=== PATIENT | male | born 1930 | race Caucasian/White ===

== ENCOUNTER 2017-06-01 10:33 | Observation (INO) | payer OTHER ==
[~2017-06-01] VITALS: Ht 185.4 cm; Wt 114.3 kg
[~2017-06-01 10:33] MED LIST: ACET-1311 PO; ASCO1CAP3 PO; CHOL100010 PO; CLTP PO; FURO-85 PO; GABA-113 PO; LANS30CA12 PO; MCRK20 PO; METO25TA3 PO; PRAM0.129 PO; SIMV40TA2 PO; WARF5TAB7 PO
[2017-06-01] MEDS ORDERED: SODIUM CHLORIDE 0.9% 500ML 500 ML IV STA (10:49)
[2017-06-01] MEDS ORDERED: SODIUM CHLORIDE 0.9% 1000ML 1,000 ML IV STA (10:49)
[2017-06-01 10:59] LABS: BASO % 0.2 %; BASO ABS # 0.02 K/uL (0-0.2); COMPLETE YES; EOS % 2.2 %; HEMATOCRIT 39.6 % (42-52); IG% 0.2 %; LYMPH % 30.5 %; LYMPH ABS # 2.54 K/uL (1.2-3.4); MEAN CELL VOLUME 82.5 fL (80-100); MEAN CORPUSCULAR HEMOGLOBIN 29.4 pg (25-34); MEAN CORPUSCULAR HGB CONC 35.6 g/dl (32-36); MEAN PLATELET VOLUME 10.3 fL (7.4-10.4); MONO % 9.2 %; NEUT % 57.7 %; PLATELET COUNT 198 K/uL (130-400); WHITE BLOOD COUNT 8.34 K/uL (4.8-10.8)
[2017-06-01 11:02] LABS: ISTAT CREATININE 1.2 mg/dl (0.6-1.3); ISTAT HEMOGLOBIN 14.3 g/dl (14.0-18.0); ISTAT IONIZED CALCIUM 1.18 mmol/l (1.12-1.32)
[2017-06-01 11:08] LABS: INR 1.7 (0.9-1.1); PARTIAL THROMBOPLASTIN RATIO 1.2; PROTHROMBIN TIME (PATIENT) 18.6 SECONDS (9.0-12.0)
--- NOTE | 2017-06-01 11:11 | DIAGNOSTIC IMAGING REPORT ---
CHEST ONE VIEW PORTABLE CLINICAL HISTORY: Weakness, near syncope. COMPARISON STUDY: 04/22/2014 FINDINGS: The heart remains borderline enlarged. Interstitial/fibrotic changes are again evident the left lung base. There is no failure. There is no acute parenchymal consolidation. There are no pleural effusions.[ IMPRESSION: Chronic interstitial changes at the left lung base. No acute findings. Electronically signed by: Douglas Caruso M.D. 06/01/2017 11:09 AM Dictated Date/Time: 06/01/2017 11:09 AM
--- NOTE | 2017-06-01 11:12 | DIAGNOSTIC IMAGING REPORT ---
CT HEAD WITHOUT CONTRAST (CT) CLINICAL HISTORY: EVALUATE WEAKNESS COMPARISON STUDY: No previous studies for comparison. TECHNIQUE: Axial CT of the brain is performed from the vertex to the skull base. IV contrast was not administered for this examination. A dose lowering technique was utilized adhering to the principles of ALARA. CT DOSE: 1228.53 mGy.cm FINDINGS: No intra or extra-axial mass lesions are visualized. There is no CT evidence of acute cortical infarction. There is no evidence of midline shift. There is no acute hemorrhage. No calvarial fractures are visualized. There are patchy white matter hypodensities likely on a small vessel basis. There is no evidence of pathologic ventricular dilatation. There is no evidence of acute sinusitis IMPRESSION: No acute intracranial findings Electronically signed by: Douglas Caruso M.D. 06/01/2017 11:11 AM Dictated Date/Time: 06/01/2017 11:10 AM
[2017-06-01 11:18] LABS: ALT/SGPT 32 U/L (12-78); AST/SGOT 29 U/L (15-37); BLOOD UREA NITROGEN 19 mg/dl (7-18); BUN/CREATININE RATIO 14.6 (10-20); CARBON DIOXIDE 26 mmol/L (21-32); CHLORIDE 106 mmol/L (98-107); GLUCOSE 111 mg/dl (70-99); MAGNESIUM 2.3 mg/dl (1.8-2.4); POTASSIUM 4.1 mmol/L (3.5-5.1); SODIUM 138 mmol/L (136-145)
[2017-06-01 11:26] LABS: ALKALINE PHOSPHATASE 63 U/L (45-117); CKMB/CK RATIO 0.9 (0-3.0)
[2017-06-01] MEDS ORDERED: CALC-354 PO (11:43)
[2017-06-01] MEDS ORDERED: RANI150T3 PO (11:43)
[2017-06-01] MEDS ORDERED: HYDR-5688 PO (11:43)
[2017-06-01] MEDS ORDERED: POTA20TA16 PO (11:43)
[2017-06-01 11:50] VITALS: O2SAT 97; Ht 185.4 cm; Wt 114.3 kg
[2017-06-01] MEDS ORDERED: SODIUM CHLORIDE 0.9% 1000ML 1,000 ML IV SCH (12:48)
[2017-06-01] MEDS ORDERED: OMEP40CA41 PO (12:58)
[2017-06-01] MEDS ORDERED: CMD5 PO (12:59)
[2017-06-01] MEDS ORDERED: ALPR-412 PO (12:59)
[2017-06-01] MEDS ORDERED: ONDANSETRON INJ 2 MG/ML 2 ML VIAL IV PRN (13:00)
[2017-06-01] MEDS ORDERED: ALPRAZOLAM 0.25 MG TAB PO PRN (13:00)
[2017-06-01] MEDS ORDERED: ACETAMINOPHEN 325 MG TAB PO PRN (13:00)
--- NOTE | 2017-06-01 13:13 | History and Physical ---
History & Physical Date & Time of Service: Jun 01, 2017 at 13:01 Chief Complaint: Near Passed Out-Code Purple Primary Care Physician: Chemo Zapata M.D. History of Present Illness Source: patient, family, clinic records, hospital records 87 yo M presents to the ER as a code purple while visiting a relative who was here having surgery. He states that he felt his stomach rumble as if he were going to have diarrhea, so he went to the public bathroom and felt like he was going to pass out. He had some diarrhea at that time without evidence of blood but felt he couldn't stand up on his own, so opened the door. His family found him after a few minutes and code purple was initiated. In the ER he has sinus gerda and is hemodynamically stable and afebrile. Workup is essentially negative but the patient still doesn't feel 100% so he will be brought in for observation. Per patient and his ROS reveals a R frontal headache that has been intermittent this week, and he states that his L ear has been bothering him. He did have two normal consistency bowel movements this morning at home prior to arriving. He reports some chronic positional lightheadedness and denies any LOC in the past. He denies any chest pain, abdominal pain, cold symptoms, sore throat, cough, nasal congestion, fevers, chills, shortness of breath, nausea, vomiting, recent diarrhea or blood per rectum or any issues with ambulation different from his baseline. He does say that his stomach has been bothering him for the last few weeks though. 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 Social History Smoking Status: Never Smoker Smokeless Tobacco Use: No Alcohol Use: none Drug Use: none Marital Status: Housing status: lives with significant other Occupational Status: retired Immunizations History of Influenza Vaccine: Yes Influenza Vaccine Date: Jun 09, 2016 History of Tetanus Vaccine?: Yes Tetanus Immunization Date: Apr 10, 2013 History of Pneumococcal: Yes Pneumococcal Date: Jul 13, 2015 History of Hepatitis B Vaccine: No Multi-Drug Resistant Organisms History of MDRO: No Allergies Coded Allergies: Paroxetine (Verified Adverse Reaction, Unknown, JERKING, 06/01/17) Home Medications Scheduled Ascorbic Acid (Vitamin C), 500 MG PO DAILY Calcium Carbonate-Cholecalcife (Caltrate 600+D), 1 TAB PO DAILY Cholecalciferol (Vitamin D), 1,000 MG PO DAILY Gabapentin (Neurontin), 300 MG PO BID Metoprolol Succ (Toprol Xl) (Toprol-Xl), 12.5 MG PO DAILY Omeprazole (Prilosec), 40 MG PO DAILY Pramipexole (Mirapex), 0.125 MG PO HS Ranitidine Hcl (Zantac), 150 MG PO HS Simvastatin (Zocor), 20 MG PO QPM Warfarin Sod (Coumadin), 5 MG PO DAILY Scheduled PRN Acetaminophen (Tylenol), 650 MG PO DIRECTED PRN for Pain Alprazolam (Alprazolam), 1 TAB PO HS PRN for insomnia/anxiety Review of Systems At least ten systems were reviewed and negative except as indicated in HPI. Physical Exam Vital Signs Date Time Temp Pulse Resp B/P (MAP) Pulse Ox O2 Delivery O2 Flow Rate FiO2 06/01/17 12:08 54 18 129/78 98 Nasal Cannula 2.0 06/01/17 11:50 97 Nasal Cannula 2.0 06/01/17 11:31 56 139/86 97 Nasal Cannula 2.0 06/01/17 11:15 58 18 130/80 94 Nasal Cannula 2.0 06/01/17 10:45 36.5 58 16 120/70 95 Room Air 06/01/17 10:45 95 Room Air General Appearance: WD/WN, no apparent distress Head: normocephalic, atraumatic Eyes: normal inspection, PERRL, EOMI, sclerae normal ENT: normal ENT inspection, hearing grossly normal, TMs normal, pharynx normal Neck: supple, no adenopathy, no JVD, trachea midline Respiratory/Chest: lungs clear, normal breath sounds, no respiratory distress, no accessory muscle use Cardiovascular: regular rate, rhythm, no edema, no gallop, no JVD, no murmur, normal peripheral pulses Abdomen/GI: normal bowel sounds, non tender, soft, + fecal occult blood (per ER physician) Back: normal inspection Extremities/Musculoskelatal: normal inspection Neurologic/Psych: rheumatology specialist II-XII nml as tested, no motor/sensory deficits, alert, normal mood/affect, oriented x 3 Skin: normal color Diagnostics Laboratory Results 06/01/17 10:45 Red Blood Count 4.80, Mean Corpuscular Volume 82.5, Mean Corpuscular Hemoglobin 29.4, Mean Corpuscular Hemoglobin Concent 35.6, Mean Platelet Volume 10.3, Neutrophils (%) (Auto) 57.7, Lymphocytes (%) (Auto) 30.5, Monocytes (%) (Auto) 9.2, Eosinophils (%) (Auto) 2.2, Basophils (%) (Auto) 0.2, Neutrophils # (Auto) 4.81, Lymphocytes # (Auto) 2.54, Monocytes # (Auto) 0.77, Eosinophils # (Auto) 0.18, Basophils # (Auto) 0.02 06/01/17 10:45 Test 06/01/17 10:45 06/01/17 10:49 06/01/17 16:00 White Blood Count 8.34 K/uL (4.8-10.8) Red Blood Count 4.80 M/uL (4.7-6.1) Hemoglobin 14.1 g/dL (14.0-18.0) Hematocrit 39.6 % (42-52) Mean Corpuscular Volume 82.5 fL (80-100) Mean Corpuscular Hemoglobin 29.4 pg (25-34) Mean Corpuscular Hemoglobin Concent 35.6 g/dl (32-36) Platelet Count 198 K/uL (130-400) Mean Platelet Volume 10.3 fL (7.4-10.4) Neutrophils (%) (Auto) 57.7 % Lymphocytes (%) (Auto) 30.5 % Monocytes (%) (Auto) 9.2 % Eosinophils (%) (Auto) 2.2 % Basophils (%) (Auto) 0.2 % Neutrophils # (Auto) 4.81 K/uL (1.4-6.5) Lymphocytes # (Auto) 2.54 K/uL (1.2-3.4) Monocytes # (Auto) 0.77 K/uL (0.11-0.59) Eosinophils # (Auto) 0.18 K/uL (0-0.5) Basophils # (Auto) 0.02 K/uL (0-0.2) RDW Standard Deviation 43.1 fL (36.4-46.3) RDW Coefficient of Variation 14.3 % (11.5-14.5) Immature Granulocyte % (Auto) 0.2 % Immature Granulocyte # (Auto) 0.02 K/uL (0.00-0.02) Prothrombin Time 18.6 SECONDS (9.0-12.0) Prothromb Time International Ratio 1.7 (0.9-1.1) Activated Partial Thromboplast Time 32.0 SECONDS (21.0-31.0) Partial Thromboplastin Ratio 1.2 Est Creatinine Clear Calc Drug Dose 55.7 ml/min Estimated GFR () 57.7 Estimated GFR (Non- 49.8 BUN/Creatinine Ratio 14.6 (10-20) Calcium Level 9.0 mg/dl (8.5-10.1) Magnesium Level 2.3 mg/dl (1.8-2.4) Total Bilirubin 0.6 mg/dl (0.2-1) Direct Bilirubin 0.2 mg/dl (0-0.2) Aspartate Amino Transf (AST/SGOT) 29 U/L (15-37) Alanine Aminotransferase (ALT/SGPT) 32 U/L (12-78) Alkaline Phosphatase 63 U/L (45-117) Total Creatine Kinase 170 U/L (39-308) Creatine Kinase MB 1.6 ng/ml (0.5-3.6) Creatine Kinase MB Ratio 0.9 (0-3.0) Troponin I < 0.015 ng/ml (0-0.045) Total Protein 7.4 gm/dl (6.4-8.2) Albumin 3.9 gm/dl (3.4-5.0) Lipase 104 U/L (73-393) Thyroid Stimulating Hormone (TSH) 2.290 uIu/ml (0.300-4.500) Bedside Hemoglobin 14.3 g/dl (14.0-18.0) Bedside Hematocrit 42 % (42-52) Bedside Sodium 139 mEq/L (135-144) Bedside Potassium 4.0 mEq/L (3.3-5.0) Bedside Chloride 103 mEq/L (101-112) Bedside Total CO2 24 mEq/l (24-31) Anion Gap 17.0 mmol/L (16-25) Bedside Blood Urea Nitrogen 20 mg/dl (7-18) Bedside Creatinine 1.2 mg/dl (0.6-1.3) Bedside Glucose (other) 113 mg/dl (70-99) Bedside Ionized Calcium (Francis) 1.18 mmol/l (1.12-1.32) Urine Color YELLOW Urine Appearance CLEAR (CLEAR) Urine pH 7.0 (4.5-7.5) Urine Specific [place] 1.010 (1.000-1.030) Urine Protein NEG (NEG) Urine Glucose (UA) NEG (NEG) Urine Ketones NEG (NEG) Urine Occult Blood NEG (NEG) Urine Nitrite NEG (NEG) Urine Bilirubin NEG (NEG) Urine Urobilinogen NEG (NEG) Urine Leukocyte Esterase TRACE (NEG) Urine WBC (Auto) 1-5 /hpf (0-5) Urine RBC (Auto) 0-4 /hpf (0-4) Urine Hyaline Casts (Auto) 1-5 /lpf (0-5) Urine Epithelial Cells (Auto) 5-10 /lpf (0-5) Urine Bacteria (Auto) NEG (NEG) Date/Time Source Procedure Growth Status 06/01/17 16:00 Stool WBC Smear Pending Received 06/01/17 16:00 Stool Shiga Toxin Test Pending Received 06/01/17 16:00 Stool Stool Culture Pending Received 06/01/17 14:05 Urine , Clean Catch Urine Culture Pending Received Results Past 24 Hours Test 06/01/17 10:45 06/01/17 10:49 Range/Units White Blood Count 8.34 4.8-10.8 K/uL Red Blood Count 4.80 4.7-6.1 M/uL Hemoglobin 14.1 14.0-18.0 g/dL Hematocrit 39.6 42-52 % Mean Corpuscular Volume 82.5 80-100 fL Mean Corpuscular Hemoglobin 29.4 25-34 pg Mean Corpuscular Hemoglobin Concent 35.6 32-36 g/dl Platelet Count 198 130-400 K/uL Mean Platelet Volume 10.3 7.4-10.4 fL Neutrophils (%) (Auto) 57.7 % Lymphocytes (%) (Auto) 30.5 % Monocytes (%) (Auto) 9.2 % Eosinophils (%) (Auto) 2.2 % Basophils (%) (Auto) 0.2 % Neutrophils # (Auto) 4.81 1.4-6.5 K/uL Lymphocytes # (Auto) 2.54 1.2-3.4 K/uL Monocytes # (Auto) 0.77 0.11-0.59 K/uL Eosinophils # (Auto) 0.18 0-0.5 K/uL Basophils # (Auto) 0.02 0-0.2 K/uL RDW Standard Deviation 43.1 36.4-46.3 fL RDW Coefficient of Variation 14.3 11.5-14.5 % Immature Granulocyte % (Auto) 0.2 % Immature Granulocyte # (Auto) 0.02 0.00-0.02 K/uL Prothrombin Time 18.6 9.0-12.0 SECONDS Prothromb Time International Ratio 1.7 0.9-1.1 Activated Partial Thromboplast Time 32.0 21.0-31.0 SECONDS Partial Thromboplastin Ratio 1.2 Sodium Level 138 136-145 mmol/L Potassium Level 4.1 3.5-5.1 mmol/L Chloride Level 106 98-107 mmol/L Carbon Dioxide Level 26 21-32 mmol/L Anion Gap 6.0 17.0 16-25 mmol/L Blood Urea Nitrogen 19 7-18 mg/dl Creatinine 1.30 0.60-1.40 mg/dl Est Creatinine Clear Calc Drug Dose 55.7 ml/min Estimated GFR () 57.7 Estimated GFR (Non- 49.8 BUN/Creatinine Ratio 14.6 10-20 Random Glucose 111 70-99 mg/dl Calcium Level 9.0 8.5-10.1 mg/dl Magnesium Level 2.3 1.8-2.4 mg/dl Total Bilirubin 0.6 0.2-1 mg/dl Direct Bilirubin 0.2 0-0.2 mg/dl Aspartate Amino Transf (AST/SGOT) 29 15-37 U/L Alanine Aminotransferase (ALT/SGPT) 32 12-78 U/L Alkaline Phosphatase 63 45-117 U/L Total Creatine Kinase 170 39-308 U/L Creatine Kinase MB 1.6 0.5-3.6 ng/ml Creatine Kinase MB Ratio 0.9 0-3.0 Troponin I < 0.015 0-0.045 ng/ml Total Protein 7.4 6.4-8.2 gm/dl Albumin 3.9 3.4-5.0 gm/dl Lipase 104 73-393 U/L Thyroid Stimulating Hormone (TSH) 2.290 0.300-4.500 uIu/ml Bedside Hemoglobin 14.3 14.0-18.0 g/dl Bedside Hematocrit 42 42-52 % Bedside Sodium 139 135-144 mEq/L Bedside Potassium 4.0 3.3-5.0 mEq/L Bedside Chloride 103 101-112 mEq/L Bedside Total CO2 24 24-31 mEq/l Bedside Blood Urea Nitrogen 20 7-18 mg/dl Bedside Creatinine 1.2 0.6-1.3 mg/dl Bedside Glucose (other) 113 70-99 mg/dl Bedside Ionized Calcium (Francis) 1.18 1.12-1.32 mmol/l Diagnostic Radiology CHEST ONE VIEW PORTABLE CLINICAL HISTORY: Weakness, near syncope. COMPARISON STUDY: 04/22/2014 FINDINGS: The heart remains borderline enlarged. Interstitial/fibrotic changes are again evident the left lung base. There is no failure. There is no acute parenchymal consolidation. There are no pleural effusions.[ IMPRESSION: Chronic interstitial changes at the left lung base. No acute findings. CT HEAD WITHOUT CONTRAST (CT) CLINICAL HISTORY: EVALUATE WEAKNESS COMPARISON STUDY: No previous studies for comparison. TECHNIQUE: Axial CT of the brain is performed from the vertex to the skull base. IV contrast was not administered for this examination. A dose lowering technique was utilized adhering to the principles of ALARA. CT DOSE: 1228.53 mGy.cm FINDINGS: No intra or extra-axial mass lesions are visualized. There is no CT evidence of acute cortical infarction. There is no evidence of midline shift. There is no acute hemorrhage. No calvarial fractures are visualized. There are patchy white matter hypodensities likely on a small vessel basis. There is no evidence of pathologic ventricular dilatation. There is no evidence of acute sinusitis IMPRESSION: No acute intracranial findings EKG SB58, 1 AVB Impression Assessment and Plan 87 yo M with presyncope 1. Presyncope likely 2/2 acute GI illness in setting of upset stomach and diarrhea. Supportive care with IVF and antiemetics as needed. Stool studies. Imodium if severe. Monitor overnight for improvement. Had mild FOBT postitive in ER-would attribute to irritation from diarrhea and upset stomach. No blood per rectum has been noted by the patient. Outpatient workup/follow-up as needed. 2. Peripheral neuropathy-controlled with gabapentin 3. PAF-cont rate control with metoprolol, cont coumadin. Daily INR. DVT prophy-coumadin Full Code per my discussion with he and his on admission Dispo-to tele Mireille Carney DO [facility] Hospitalist Level of Care Med/Surg Advanced Directives Existing Living Will: No Existing Power of It Senior Analyst: No Resuscitation Status FULL RESUSCITATION VTE Prophylaxis VTE Risk Assessment Done? Y/N: Yes Risk Level: Moderate Given or contraindicated: Warfarin (Coumadin)
[2017-06-01] MEDS ORDERED: IV FLUIDS COMPLETED PRN (14:15)
--- NOTE | 2017-06-01 14:30 | EMERGENCY ROOM VISIT NOTE ---
History Report prepared by Sindhu: Andres James Under the Supervision of: Dr. Obi Rivera M.D. First contact with patient: 10:44 Chief Complaint: SYNCOPE (NEAR SYNCOPE) Stated Complaint: NEAR PASSED OUT-CODE PURPLE History of Present Illness The patient is a 87 year old male who presents to the Emergency Room with complaints of a near syncopal episode occurring 10 minutes ago. He states that he was visiting someone in the hospital and went to go to the bathroom when his episode occurred. He notes that his episode occurring while sitting on the toilet. The patient states that he experienced diarrhea just prior to this. He states that he had one episode of diarrhea occur earlier today as well. He was unable to see if his stool was black or bloody. The patient states that he felt too weak to get off the toilet during the episode. He states that he did not actually lose consciousness. He currently complains of lightheadedness, generalized weakness, and a throbbing pain in the left side of his head. Per , the patient has been complaining of intermittent left forehead pain this past week, but otherwise he has had no apparent changes to his health. He is on Coumadin. Pt denies fevers, chills, visual changes, neck pain/stiffness, thunder clap or sudden onset of headache, carbon monoxide exposure, ear problems /hearing loss, sinus congestion/recent infection, chest pain, breathing difficulties, vomiting, abdominal pain, urinary symptoms, numbness, weakness, lymphadenopathy, rash, or other complaints Source of History: patient Onset: 10 minutes ago Quality: other (near-syncope) Timing: other (episode) Associated Symptoms: + diarrhea, + weakness (generalized) Note: Additional symptoms: lightheadedness, and a throbbing pain in the left side of his head. Review of Systems See HPI for pertinent positives and negatives. A total of ten systems were reviewed and were otherwise negative. 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 Social History Smoking Status: Never Smoker Marital Status: Occupation Status: retired Current/Historical Medications Scheduled Ascorbic Acid (Vitamin C), 500 MG PO DAILY Calcium Carbonate-Cholecalcife (Caltrate 600+D), 1 TAB PO DAILY Cholecalciferol (Vitamin D), 1,000 MG PO DAILY Gabapentin (Neurontin), 300 MG PO BID Metoprolol Succ (Toprol Xl) (Toprol-Xl), 12.5 MG PO DAILY Omeprazole (Prilosec), 40 MG PO DAILY Pramipexole (Mirapex), 0.125 MG PO HS Ranitidine Hcl (Zantac), 150 MG PO HS Simvastatin (Zocor), 20 MG PO QPM Warfarin Sod (Coumadin), 5 MG PO DAILY Scheduled PRN Acetaminophen (Tylenol), 650 MG PO DIRECTED PRN for Pain Alprazolam (Alprazolam), 1 TAB PO HS PRN for insomnia/anxiety Allergies Coded Allergies: Paroxetine (Verified Adverse Reaction, Unknown, JERKING, 06/01/17) Physical Exam Vital Signs Date Time Temp Pulse Resp B/P (MAP) Pulse Ox O2 Delivery O2 Flow Rate FiO2 06/01/17 12:08 54 18 129/78 98 Nasal Cannula 2.0 06/01/17 11:50 97 Nasal Cannula 2.0 06/01/17 11:31 56 139/86 97 Nasal Cannula 2.0 06/01/17 11:15 58 18 130/80 94 Nasal Cannula 2.0 06/01/17 10:45 36.5 58 16 120/70 95 Room Air 06/01/17 10:45 95 Room Air Physical Exam GENERAL: Awake, alert, uncomfortable-appearing, no distress. Mildly diaphoretic. HENT: Normocephalic, atraumatic. TM's normal. Oropharynx unremarkable. EYES: PERRL. EOMI. Normal conjunctiva. Sclera non-icteric. NECK: Supple. No nuchal rigidity. FROM. No JVD or bruit. RESPIRATORY: CTA CARDIAC: RRR. No murmur. ABDOMEN: Soft, non distended. No tenderness to palpation. No rebound or guarding. No masses. Hyperactive bowel sounds noted. RECTAL: Deferred. MUSCULOSKELETAL: Unremarkable. No edema. Gross motor strength symmetric. Chronic lower extremity veinous discoloration. NEURO: Cranial nerves 2-12 grossly intact. Normal sensorium. No sensory or motor deficits noted. Speech normal. No pronator drift. SKIN: No rash or jaundice noted. Skin graft noted to the lower extremities and back. LYMPH: No adenopathy. Medical Decision & Procedures ER Provider Diagnostic Interpretation: Radiology results as stated below per my review and radiologist interpretation: CT HEAD WITHOUT CONTRAST (CT) FINDINGS: No intra or extra-axial mass lesions are visualized. There is no CT evidence of acute cortical infarction. There is no evidence of midline shift. There is no acute hemorrhage. No calvarial fractures are visualized. There are patchy white matter hypodensities likely on a small vessel basis. There is no evidence of pathologic ventricular dilatation. There is no evidence of acute sinusitis IMPRESSION: No acute intracranial findings Electronically signed by: Douglas Caruso M.D. 06/01/2017 11:11 AM CHEST ONE VIEW PORTABLE FINDINGS: The heart remains borderline enlarged. Interstitial/fibrotic changes are again evident the left lung base. There is no failure. There is no acute parenchymal consolidation. There are no pleural effusions.[ IMPRESSION: Chronic interstitial changes at the left lung base. No acute findings. Electronically signed by: Douglas Caruso M.D. 06/01/2017 11:09 AM Laboratory Results 06/01/17 10:45 Red Blood Count 4.80, Mean Corpuscular Volume 82.5, Mean Corpuscular Hemoglobin 29.4, Mean Corpuscular Hemoglobin Concent 35.6, Mean Platelet Volume 10.3, Neutrophils (%) (Auto) 57.7, Lymphocytes (%) (Auto) 30.5, Monocytes (%) (Auto) 9.2, Eosinophils (%) (Auto) 2.2, Basophils (%) (Auto) 0.2, Neutrophils # (Auto) 4.81, Lymphocytes # (Auto) 2.54, Monocytes # (Auto) 0.77, Eosinophils # (Auto) 0.18, Basophils # (Auto) 0.02 06/01/17 10:45 Test 06/01/17 10:45 06/01/17 10:49 White Blood Count 8.34 K/uL (4.8-10.8) Red Blood Count 4.80 M/uL (4.7-6.1) Hemoglobin 14.1 g/dL (14.0-18.0) Hematocrit 39.6 % (42-52) Mean Corpuscular Volume 82.5 fL (80-100) Mean Corpuscular Hemoglobin 29.4 pg (25-34) Mean Corpuscular Hemoglobin Concent 35.6 g/dl (32-36) Platelet Count 198 K/uL (130-400) Mean Platelet Volume 10.3 fL (7.4-10.4) Neutrophils (%) (Auto) 57.7 % Lymphocytes (%) (Auto) 30.5 % Monocytes (%) (Auto) 9.2 % Eosinophils (%) (Auto) 2.2 % Basophils (%) (Auto) 0.2 % Neutrophils # (Auto) 4.81 K/uL (1.4-6.5) Lymphocytes # (Auto) 2.54 K/uL (1.2-3.4) Monocytes # (Auto) 0.77 K/uL (0.11-0.59) Eosinophils # (Auto) 0.18 K/uL (0-0.5) Basophils # (Auto) 0.02 K/uL (0-0.2) RDW Standard Deviation 43.1 fL (36.4-46.3) RDW Coefficient of Variation 14.3 % (11.5-14.5) Immature Granulocyte % (Auto) 0.2 % Immature Granulocyte # (Auto) 0.02 K/uL (0.00-0.02) Prothrombin Time 18.6 SECONDS (9.0-12.0) Prothromb Time International Ratio 1.7 (0.9-1.1) Activated Partial Thromboplast Time 32.0 SECONDS (21.0-31.0) Partial Thromboplastin Ratio 1.2 Est Creatinine Clear Calc Drug Dose 55.7 ml/min Estimated GFR () 57.7 Estimated GFR (Non- 49.8 BUN/Creatinine Ratio 14.6 (10-20) Calcium Level 9.0 mg/dl (8.5-10.1) Magnesium Level 2.3 mg/dl (1.8-2.4) Total Bilirubin 0.6 mg/dl (0.2-1) Direct Bilirubin 0.2 mg/dl (0-0.2) Aspartate Amino Transf (AST/SGOT) 29 U/L (15-37) Alanine Aminotransferase (ALT/SGPT) 32 U/L (12-78) Alkaline Phosphatase 63 U/L (45-117) Total Creatine Kinase 170 U/L (39-308) Creatine Kinase MB 1.6 ng/ml (0.5-3.6) Creatine Kinase MB Ratio 0.9 (0-3.0) Troponin I < 0.015 ng/ml (0-0.045) Total Protein 7.4 gm/dl (6.4-8.2) Albumin 3.9 gm/dl (3.4-5.0) Lipase 104 U/L (73-393) Thyroid Stimulating Hormone (TSH) 2.290 uIu/ml (0.300-4.500) Bedside Hemoglobin 14.3 g/dl (14.0-18.0) Bedside Hematocrit 42 % (42-52) Bedside Sodium 139 mEq/L (135-144) Bedside Potassium 4.0 mEq/L (3.3-5.0) Bedside Chloride 103 mEq/L (101-112) Bedside Total CO2 24 mEq/l (24-31) Anion Gap 17.0 mmol/L (16-25) Bedside Blood Urea Nitrogen 20 mg/dl (7-18) Bedside Creatinine 1.2 mg/dl (0.6-1.3) Bedside Glucose (other) 113 mg/dl (70-99) Bedside Ionized Calcium (Francis) 1.18 mmol/l (1.12-1.32) Laboratory results reviewed by me Medications Administered Medications (Trade) Dose Ordered Sig/Jean Marie Route Start Time Stop Time Status Last Admin Dose Admin Sodium Chloride 1,000 ml @ 125 mls/hr Q8H STAT IV 06/01/17 10:49 06/01/17 14:16 DC 06/01/17 11:25 125 MLS/HR Sodium Chloride 500 ml @ 999 mls/hr Q31M STAT IV 06/01/17 10:49 06/01/17 11:19 DC 06/01/17 10:50 999 MLS/HR ECG Indication: syncope (near) Rate (beats per minute): 58 Rhythm: sinus bradycardia Findings: 1st degree AV block, PAC, no acute ischemic change ED Course 1038: The patient was evaluated in room A1. A complete history and physical exam was performed. 1049: Ordered Sodium Chloride 1000 ml @ 125 mls/hr IV, Sodium Chloride 500 ml @ 999 mls/hr IV. 1201: Upon reexamination, the patient was resting comfortably. I discussed the test results and treatment plan with him. The patient will be evaluated for further management. Medical Decision Triage Nursing notes reviewed. The patient's presentation and history were concerning for near syncope and diarrhea. Etiologies such as vasovagal event, GI bleed, infection, hypoglycemia, electrolyte abnormalities, cardiac sources, intracerebral event, toxicologic, neurologic, as well as others were entertained. The patient was evaluated. He was quickly mobilized to the Emergency Room after a code purple was called for his distress. He had a nonfocal neurologic examination. He was generally weak. The patient was hydrated. Oxygen was applied. The patient's CAT scan was unremarkable. Chest x-ray was unremarkable. His CBC, chemistry panel, LFTs and lipase unremarkable. The patient had trace heme positive stools on rectal examination but there was no gross blood. No melena. On reassessment he was feeling somewhat better. Given his age and the severity of symptoms further evaluation and management was felt to be appropriate in the hospital. Consultation was made with internal medicine. The patient was evaluated in the Emergency Room for further management. Medication Reconcilliation Current Medication List: was personally reviewed by me Blood Pressure Screening Patient's blood pressure: Normal blood pressure Blood pressure disposition: Did not require urgent referral Consults Time Called: 1153 Consulting Physician: Dr. Carney -[facility] [place] Returned Call: 1200 Discussed the patient's case. The patient will be evaluated for further treatment and disposition. Impression Primary Impression: Near syncope Scribe Attestation The scribe's documentation has been prepared under my direction and personally reviewed by me in its entirety. I confirm that the note above accurately reflects all work, treatment, procedures, and medical decision making performed by me. Departure Information Dispostion Being Evaluated By Hospitalist Chemo Greer M.D. (PCP) Patient Instructions My [facility]
[2017-06-01 14:31] VITALS: BP 168/101; PULSE 86; TEMP 36.6; O2SAT 97
[2017-06-01 16:15] LABS: URINE APPEARANCE CLEAR (CLEAR); URINE BILIRUBIN NEG (NEG); URINE COLOR YELLOW; URINE NITRITE NEG (NEG); UROBILINOGEN NEG (NEG)
[2017-06-01 17:00] LABS: MANUAL MICROSCOPIC REQUIRED? NO; REVIEW REQ? NO
[2017-06-01 19:35] VITALS: BP 154/82; PULSE 58; TEMP 36.6; O2SAT 97
[2017-06-01] MEDS ORDERED: SIMVASTATIN 20 MG TAB PO SCH (21:00)
[2017-06-01] MEDS ORDERED: PRAMIPEXOLE DIHYDROCHLORIDE 0.25MG TAB PO SCH (21:00)
[2017-06-01] MEDS ORDERED: CALCIUM 600MG + VIT D 400 IU TAB PO SCH (21:00)
[2017-06-01] MEDS: GABAPENTIN 300 MG CAP PO SCH (21:00)
[2017-06-01] MEDS ORDERED: RANITIDINE HCL 150 MG TAB PO SCH (21:00)
[2017-06-02 00:27] VITALS: BP 147/80; PULSE 63; TEMP 36.7; O2SAT 94
[2017-06-02] MEDS ORDERED: DIPHENOXYLATE/ATROPINE 2.5/0.025MG TAB PO PRN (00:45)
[2017-06-02 07:34] LABS: MEAN CELL VOLUME 81.9 fL (80-100); MEAN CORPUSCULAR HEMOGLOBIN 28.3 pg (25-34); MEAN CORPUSCULAR HGB CONC 34.6 g/dl (32-36); MEAN PLATELET VOLUME 10.3 fL (7.4-10.4); PLATELET COUNT 176 K/uL (130-400); RED BLOOD COUNT 4.52 M/uL (4.7-6.1)
[2017-06-02 07:37] VITALS: BP 131/72; PULSE 62; TEMP 36.8; O2SAT 95
[2017-06-02] MEDS: GABAPENTIN 300 MG CAP PO SCH (07:47)
[2017-06-02 08:00] VITALS: O2SAT 95
[2017-06-02 08:02] LABS: BUN/CREATININE RATIO 14.4 (10-20); CALCIUM 8.3 mg/dl (8.5-10.1); POTASSIUM 3.8 mmol/L (3.5-5.1)
[2017-06-02] MEDS ORDERED: NURSING VERBAL MED ORDER ONE (08:30)
[2017-06-02] MEDS ORDERED: CALCIUM 600MG + VIT D 400 IU TAB PO SCH (09:00)
[2017-06-02] MEDS ORDERED: ASCORBIC ACID 500 MG TAB PO SCH ×2 (09:00→17:00)
[2017-06-02] MEDS ORDERED: METOPROLOL SUCC 25MG EXT REL TAB PO SCH ×2 (09:00→17:00)
[2017-06-02] MEDS ORDERED: PANTOprazole SOD 40 MG TAB PO SCH (09:00)
[2017-06-02] MEDS ORDERED: CHOLECALCIFEROL 1000 INTER.UNIT TAB PO SCH ×2 (09:00→17:00)
[2017-06-02 11:11] VITALS: BP 134/76; PULSE 60; TEMP 36.6; O2SAT 95
[2017-06-02 12:00] VITALS: O2SAT 95
--- NOTE | 2017-06-02 14:51 | Progress Note ---
Internal Med Progress Note Date of Service: Jun 02, 2017. Provider Documentation: SUBJECTIVE: The patient was seem and examined Has not been feeling well for the last few days Diarrhea on the day of admission Presyncope during/following bowel movement OBJECTIVE: Vital Signs-as noted below Exam: General-No distress at rest Eyes-normal ENT-Normal Neck-supple Lungs-clear to ausucltate bilaterally Heart-Regular,no murmur Abdomen-Benign,no masses,bowel sound present Extremities-No edema Neuro-AAOx3 NO focal neuro deficit Lab data as noted below. ASSESSMENT & PLAN: 87 yo M with presyncope Presyncope Likely Vasovagal Secondary to acute GI illness in setting of upset stomach and diarrhea. Supportive Care IV fluid Stool for C Diff-negative ,C/S pending Diarrheal is controlled with Imodium PAF-cont rate control with metoprolol, cont Coumadin. Has Extreme 1 deg Heart Block No arrhythmia noted overnight No symptoms noted Peripheral neuropathy-controlled with gabapentin Likely to complicate the situation DVT prophy-Coumadin Full Code per my discussion with he and his on admission Feeling a lot better Has had PT Wants to be discharged Discussed with the Family members Discharge today Vital Signs: Date Time Temp Pulse Resp B/P (MAP) Pulse Ox O2 Delivery O2 Flow Rate FiO2 06/02/17 15:33 36.6 60 18 95 Room Air 06/02/17 12:00 95 Room Air 06/02/17 11:11 36.6 60 18 134/76 (95) 95 Room Air 06/02/17 08:00 95 Room Air 06/02/17 07:37 36.8 62 18 131/72 (91) 95 Room Air 06/02/17 04:00 Room Air 06/02/17 00:27 36.7 63 19 147/80 (102) 94 Room Air 06/02/17 00:00 Room Air 06/01/17 20:30 Room Air 06/01/17 19:35 36.6 58 18 154/82 (106) 97 Nasal Cannula 06/01/17 16:00 Room Air Lab Results: Results Past 24 Hours Test 06/01/17 16:00 06/02/17 07:09 Range/Units Urine Color YELLOW Urine Appearance CLEAR CLEAR Urine pH 7.0 4.5-7.5 Urine Specific [place] 1.010 1.000-1.030 Urine Protein NEG NEG Urine Glucose (UA) NEG NEG Urine Ketones NEG NEG Urine Occult Blood NEG NEG Urine Nitrite NEG NEG Urine Bilirubin NEG NEG Urine Urobilinogen NEG NEG Urine Leukocyte Esterase TRACE NEG Urine WBC (Auto) 1-5 0-5 /hpf Urine RBC (Auto) 0-4 0-4 /hpf Urine Hyaline Casts (Auto) 1-5 0-5 /lpf Urine Epithelial Cells (Auto) 5-10 0-5 /lpf Urine Bacteria (Auto) NEG NEG White Blood Count 4.90 4.8-10.8 K/uL Red Blood Count 4.52 4.7-6.1 M/uL Hemoglobin 12.8 14.0-18.0 g/dL Hematocrit 37.0 42-52 % Mean Corpuscular Volume 81.9 80-100 fL Mean Corpuscular Hemoglobin 28.3 25-34 pg Mean Corpuscular Hemoglobin Concent 34.6 32-36 g/dl RDW Standard Deviation 43.1 36.4-46.3 fL RDW Coefficient of Variation 14.3 11.5-14.5 % Platelet Count 176 130-400 K/uL Mean Platelet Volume 10.3 7.4-10.4 fL Sodium Level 140 136-145 mmol/L Potassium Level 3.8 3.5-5.1 mmol/L Chloride Level 107 98-107 mmol/L Carbon Dioxide Level 24 21-32 mmol/L Anion Gap 9.0 3-11 mmol/L Blood Urea Nitrogen 14 7-18 mg/dl Creatinine 1.00 0.60-1.40 mg/dl Est Creatinine Clear Calc Drug Dose 71.5 ml/min Estimated GFR () 79.2 Estimated GFR (Non- 68.3 BUN/Creatinine Ratio 14.4 10-20 Random Glucose 98 70-99 mg/dl Calcium Level 8.3 8.5-10.1 mg/dl Microbiology Results 06/01/17 WBC Smear - Final, Resulted 06/01/17 Shiga Toxin Test - Preliminary, Resulted No E. Coli shiga toxin 1 or shiga tox... 06/01/17 Stool Culture - Preliminary, Resulted NO SALMONELLA ISOLATED TO DATE,... 06/01/17 C.difficile Toxin B Gene (PCR) - Final, Complete No C. difficile toxin B gene detected
--- NOTE | 2017-06-02 14:53 | Discharge Instructions ---
Discharge Instructions Date of Service Jun 02, 2017. Admission Reason for Admission: Near Syncope Discharge Discharge Diagnosis / Problem: Presyncope,Diarrhea-controlled Discharge Goals Goal(s): Prevent Disease Progression Activity Recommendations Activity Limitations: resume your previous activity . Instructions / Follow-Up Instructions / Follow-Up Will call with appointment Current Hospital Diet Patient's current hospital diet: AHA Diet (Heart Healthy) Discharge Diet Recommended Diet: AHA Diet (Heart Healthy) Pending Studies Studies pending at discharge: no Medical Emergencies . Who to Call and When: Medical Emergencies: If at any time you feel your situation is an emergency, please call 911 immediately. . Non-Emergent Contact Non-Emergency issues call your: Primary Care Provider . 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 "Provider Documentation" section prepared by Ezio Murray. . VTE Core Measure Inpt VTE Proph given/why not?: Warfarin (Coumadin)
[2017-06-02 15:33] VITALS: BP 134/76; PULSE 60; TEMP 36.6; O2SAT 95
[2017-06-02] MEDS ORDERED: WARFARIN SOD 5 MG TAB PO SCH (16:00)
--- NOTE | 2017-06-03 07:33 | Discharge Summary ---
Discharge Summary Date of Service Jun 03, 2017. Discharge Summary Admission Date: Jun 01, 2017 at 12:16 Discharge Date: Jun 02, 2017 Discharge Disposition: Home Principal Diagnosis: Presyncope,Diarrhea-controlled Secondary Diagnoses/Problems: Please see H&P and Hospital progress note Medication Reconciliation Continued Medications: Acetaminophen (Tylenol) 325 Mg Tab 650 MG PO DIRECTED PRN for Pain, TAB Alprazolam (Alprazolam) 0.25 Mg Tab 1 TAB PO HS PRN for insomnia/anxiety for 30 Days, TAB Ascorbic Acid (Vitamin C) 500 Mg Cap 500 MG PO DAILY Calcium Carbonate-Cholecalcife (Caltrate 600+D) 1 Tab Tab 1 TAB PO DAILY Cholecalciferol (Vitamin D) 1,000 Unit Tab 1000 MG PO DAILY Gabapentin (Neurontin) 300 Mg Cap 300 MG PO BID Metoprolol Succ (Toprol Xl) (Toprol-Xl) 25 Mg Tabcr 12.5 MG PO DAILY, #30 TAB Omeprazole (Prilosec) 40 Mg Cap 40 MG PO DAILY for 30 Days, #30 CAP 3 Refills Pramipexole (Mirapex) 0.125 Mg Tab 0.125 MG PO HS, TAB Ranitidine Hcl (Zantac) 150 Mg Tab 150 MG PO HS, TAB Simvastatin (Zocor) 40 Mg Tab 20 MG PO QPM Warfarin Sod (Coumadin) 5 Mg Tab 5 MG PO DAILY Admission Information HPI (per Admitting provider): 87 yo M presents to the ER as a code purple while visiting a relative who was here having surgery. He states that he felt his stomach rumble as if he were going to have diarrhea, so he went to the public bathroom and felt like he was going to pass out. He had some diarrhea at that time without evidence of blood but felt he couldn't stand up on his own, so opened the door. His family found him after a few minutes and code purple was initiated. In the ER he has sinus gerda and is hemodynamically stable and afebrile. Workup is essentially negative but the patient still doesn't feel 100% so he will be brought in for observation. Per patient and his ROS reveals a R frontal headache that has been intermittent this week, and he states that his L ear has been bothering him. He did have two normal consistency bowel movements this morning at home prior to arriving. He reports some chronic positional lightheadedness and denies any LOC in the past. He denies any chest pain, abdominal pain, cold symptoms, sore throat, cough, nasal congestion, fevers, chills, shortness of breath, nausea, vomiting, recent diarrhea or blood per rectum or any issues with ambulation different from his baseline. He does say that his stomach has been bothering him for the last few weeks though. 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 Social History Smoking Status: Never Smoker Smokeless Tobacco Use: No Alcohol Use: none Drug Use: none Marital Status: Housing status: lives with significant other Occupational Status: retired Immunizations History of Influenza Vaccine: Yes Influenza Vaccine Date: Jun 09, 2016 History of Tetanus Vaccine?: Yes Tetanus Immunization Date: Apr 10, 2013 History of Pneumococcal: Yes Pneumococcal Date: Jul 13, 2015 History of Hepatitis B Vaccine: No Multi-Drug Resistant Organisms History of MDRO: No Allergies Coded Allergies: Paroxetine (Verified Adverse Reaction, Unknown, JERKING, 06/01/17) Home Medications Scheduled Ascorbic Acid (Vitamin C), 500 MG PO DAILY Calcium Carbonate-Cholecalcife (Caltrate 600+D), 1 TAB PO DAILY Cholecalciferol (Vitamin D), 1,000 MG PO DAILY Gabapentin (Neurontin), 300 MG PO BID Metoprolol Succ (Toprol Xl) (Toprol-Xl), 12.5 MG PO DAILY Omeprazole (Prilosec), 40 MG PO DAILY Pramipexole (Mirapex), 0.125 MG PO HS Ranitidine Hcl (Zantac), 150 MG PO HS Simvastatin (Zocor), 20 MG PO QPM Warfarin Sod (Coumadin), 5 MG PO DAILY Scheduled PRN Acetaminophen (Tylenol), 650 MG PO DIRECTED PRN for Pain Alprazolam (Alprazolam), 1 TAB PO HS PRN for insomnia/anxiety Review of Systems At least ten systems were reviewed and negative except as indicated in HPI. Physical Ex - H&P Physical Exam Vital Signs Date Time Temp Pulse Resp B/P (MAP) Pulse Ox O2 Delivery O2 Flow Rate FiO2 06/01/17 12:08 54 18 129/78 98 Nasal Cannula 2.0 06/01/17 11:50 97 Nasal Cannula 2.0 06/01/17 11:31 56 139/86 97 Nasal Cannula 2.0 06/01/17 11:15 58 18 130/80 94 Nasal Cannula 2.0 06/01/17 10:45 36.5 58 16 120/70 95 Room Air 06/01/17 10:45 95 Room Air General Appearance: WD/WN, no apparent distress Head: normocephalic, atraumatic Eyes: normal inspection, PERRL, EOMI, sclerae normal ENT: normal ENT inspection, hearing grossly normal, TMs normal, pharynx normal Neck: supple, no adenopathy, no JVD, trachea midline Respiratory/Chest: lungs clear, normal breath sounds, no respiratory distress, no accessory muscle use Cardiovascular: regular rate, rhythm, no edema, no gallop, no JVD, no murmur, normal peripheral pulses Abdomen/GI: normal bowel sounds, non tender, soft, + fecal occult blood (per ER physician) Back: normal inspection Extremities/Musculoskelatal: normal inspection 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, no motor/sensory deficits, alert, normal mood/affect, oriented x 3 Skin: normal color Diagnostics - H&P Diagnostics Laboratory Results 06/01/17 10:45 Red Blood Count 4.80, Mean Corpuscular Volume 82.5, Mean Corpuscular Hemoglobin 29.4, Mean Corpuscular Hemoglobin Concent 35.6, Mean Platelet Volume 10.3, Neutrophils (%) (Auto) 57.7, Lymphocytes (%) (Auto) 30.5, Monocytes (%) (Auto) 9.2, Eosinophils (%) (Auto) 2.2, Basophils (%) (Auto) 0.2, Neutrophils # (Auto) 4.81, Lymphocytes # (Auto) 2.54, Monocytes # (Auto) 0.77, Eosinophils # (Auto) 0.18, Basophils # (Auto) 0.02 06/01/17 10:45 Test 06/01/17 10:45 06/01/17 10:49 06/01/17 16:00 White Blood Count 8.34 K/uL (4.8-10.8) Red Blood Count 4.80 M/uL (4.7-6.1) Hemoglobin 14.1 g/dL (14.0-18.0) Hematocrit 39.6 % (42-52) Mean Corpuscular Volume 82.5 fL (80-100) Mean Corpuscular Hemoglobin 29.4 pg (25-34) Mean Corpuscular Hemoglobin Concent 35.6 g/dl (32-36) Platelet Count 198 K/uL (130-400) Mean Platelet Volume 10.3 fL (7.4-10.4) Neutrophils (%) (Auto) 57.7 % Lymphocytes (%) (Auto) 30.5 % Monocytes (%) (Auto) 9.2 % Eosinophils (%) (Auto) 2.2 % Basophils (%) (Auto) 0.2 % Neutrophils # (Auto) 4.81 K/uL (1.4-6.5) Lymphocytes # (Auto) 2.54 K/uL (1.2-3.4) Monocytes # (Auto) 0.77 K/uL (0.11-0.59) Eosinophils # (Auto) 0.18 K/uL (0-0.5) Basophils # (Auto) 0.02 K/uL (0-0.2) RDW Standard Deviation 43.1 fL (36.4-46.3) RDW Coefficient of Variation 14.3 % (11.5-14.5) Immature Granulocyte % (Auto) 0.2 % Immature Granulocyte # (Auto) 0.02 K/uL (0.00-0.02) Prothrombin Time 18.6 SECONDS (9.0-12.0) Prothromb Time International Ratio 1.7 (0.9-1.1) Activated Partial Thromboplast Time 32.0 SECONDS (21.0-31.0) Partial Thromboplastin Ratio 1.2 Est Creatinine Clear Calc Drug Dose 55.7 ml/min Estimated GFR () 57.7 Estimated GFR (Non- 49.8 BUN/Creatinine Ratio 14.6 (10-20) Calcium Level 9.0 mg/dl (8.5-10.1) Magnesium Level 2.3 mg/dl (1.8-2.4) Total Bilirubin 0.6 mg/dl (0.2-1) Direct Bilirubin 0.2 mg/dl (0-0.2) Aspartate Amino Transf (AST/SGOT) 29 U/L (15-37) Alanine Aminotransferase (ALT/SGPT) 32 U/L (12-78) Alkaline Phosphatase 63 U/L (45-117) Total Creatine Kinase 170 U/L (39-308) Creatine Kinase MB 1.6 ng/ml (0.5-3.6) Creatine Kinase MB Ratio 0.9 (0-3.0) Troponin I < 0.015 ng/ml (0-0.045) Total Protein 7.4 gm/dl (6.4-8.2) Albumin 3.9 gm/dl (3.4-5.0) Lipase 104 U/L (73-393) Thyroid Stimulating Hormone (TSH) 2.290 uIu/ml (0.300-4.500) Bedside Hemoglobin 14.3 g/dl (14.0-18.0) Bedside Hematocrit 42 % (42-52) Bedside Sodium 139 mEq/L (135-144) Bedside Potassium 4.0 mEq/L (3.3-5.0) Bedside Chloride 103 mEq/L (101-112) Bedside Total CO2 24 mEq/l (24-31) Anion Gap 17.0 mmol/L (16-25) Bedside Blood Urea Nitrogen 20 mg/dl (7-18) Bedside Creatinine 1.2 mg/dl (0.6-1.3) Bedside Glucose (other) 113 mg/dl (70-99) Bedside Ionized Calcium (Francis) 1.18 mmol/l (1.12-1.32) Urine Color YELLOW Urine Appearance CLEAR (CLEAR) Urine pH 7.0 (4.5-7.5) Urine Specific [place] 1.010 (1.000-1.030) Urine Protein NEG (NEG) Urine Glucose (UA) NEG (NEG) Urine Ketones NEG (NEG) Urine Occult Blood NEG (NEG) Urine Nitrite NEG (NEG) Urine Bilirubin NEG (NEG) Urine Urobilinogen NEG (NEG) Urine Leukocyte Esterase TRACE (NEG) Urine WBC (Auto) 1-5 /hpf (0-5) Urine RBC (Auto) 0-4 /hpf (0-4) Urine Hyaline Casts (Auto) 1-5 /lpf (0-5) Urine Epithelial Cells (Auto) 5-10 /lpf (0-5) Urine Bacteria (Auto) NEG (NEG) Date/Time Source Procedure Growth Status 06/01/17 16:00 Stool WBC Smear Pending Received 06/01/17 16:00 Stool Shiga Toxin Test Pending Received 06/01/17 16:00 Stool Stool Culture Pending Received 06/01/17 14:05 Urine , Clean Catch Urine Culture Pending Received Results Past 24 Hours Test 06/01/17 10:45 06/01/17 10:49 Range/Units White Blood Count 8.34 4.8-10.8 K/uL Red Blood Count 4.80 4.7-6.1 M/uL Hemoglobin 14.1 14.0-18.0 g/dL Hematocrit 39.6 42-52 % Mean Corpuscular Volume 82.5 80-100 fL Mean Corpuscular Hemoglobin 29.4 25-34 pg Mean Corpuscular Hemoglobin Concent 35.6 32-36 g/dl Platelet Count 198 130-400 K/uL Mean Platelet Volume 10.3 7.4-10.4 fL Neutrophils (%) (Auto) 57.7 % Lymphocytes (%) (Auto) 30.5 % Monocytes (%) (Auto) 9.2 % Eosinophils (%) (Auto) 2.2 % Basophils (%) (Auto) 0.2 % Neutrophils # (Auto) 4.81 1.4-6.5 K/uL Lymphocytes # (Auto) 2.54 1.2-3.4 K/uL Monocytes # (Auto) 0.77 0.11-0.59 K/uL Eosinophils # (Auto) 0.18 0-0.5 K/uL Basophils # (Auto) 0.02 0-0.2 K/uL RDW Standard Deviation 43.1 36.4-46.3 fL RDW Coefficient of Variation 14.3 11.5-14.5 % Immature Granulocyte % (Auto) 0.2 % Immature Granulocyte # (Auto) 0.02 0.00-0.02 K/uL Prothrombin Time 18.6 9.0-12.0 SECONDS Prothromb Time International Ratio 1.7 0.9-1.1 Activated Partial Thromboplast Time 32.0 21.0-31.0 SECONDS Partial Thromboplastin Ratio 1.2 Sodium Level 138 136-145 mmol/L Potassium Level 4.1 3.5-5.1 mmol/L Chloride Level 106 98-107 mmol/L Carbon Dioxide Level 26 21-32 mmol/L Anion Gap 6.0 17.0 16-25 mmol/L Blood Urea Nitrogen 19 7-18 mg/dl Creatinine 1.30 0.60-1.40 mg/dl Est Creatinine Clear Calc Drug Dose 55.7 ml/min Estimated GFR () 57.7 Estimated GFR (Non- 49.8 BUN/Creatinine Ratio 14.6 10-20 Random Glucose 111 70-99 mg/dl Calcium Level 9.0 8.5-10.1 mg/dl Magnesium Level 2.3 1.8-2.4 mg/dl Total Bilirubin 0.6 0.2-1 mg/dl Direct Bilirubin 0.2 0-0.2 mg/dl Aspartate Amino Transf (AST/SGOT) 29 15-37 U/L Alanine Aminotransferase (ALT/SGPT) 32 12-78 U/L Alkaline Phosphatase 63 45-117 U/L Total Creatine Kinase 170 39-308 U/L Creatine Kinase MB 1.6 0.5-3.6 ng/ml Creatine Kinase MB Ratio 0.9 0-3.0 Troponin I < 0.015 0-0.045 ng/ml Total Protein 7.4 6.4-8.2 gm/dl Albumin 3.9 3.4-5.0 gm/dl Lipase 104 73-393 U/L Thyroid Stimulating Hormone (TSH) 2.290 0.300-4.500 uIu/ml Bedside Hemoglobin 14.3 14.0-18.0 g/dl Bedside Hematocrit 42 42-52 % Bedside Sodium 139 135-144 mEq/L Bedside Potassium 4.0 3.3-5.0 mEq/L Bedside Chloride 103 101-112 mEq/L Bedside Total CO2 24 24-31 mEq/l Bedside Blood Urea Nitrogen 20 7-18 mg/dl Bedside Creatinine 1.2 0.6-1.3 mg/dl Bedside Glucose (other) 113 70-99 mg/dl Bedside Ionized Calcium (Francis) 1.18 1.12-1.32 mmol/l Diagnostic Radiology CHEST ONE VIEW PORTABLE CLINICAL HISTORY: Weakness, near syncope. COMPARISON STUDY: 04/22/2014 FINDINGS: The heart remains borderline enlarged. Interstitial/fibrotic changes are again evident the left lung base. There is no failure. There is no acute parenchymal consolidation. There are no pleural effusions.[ IMPRESSION: Chronic interstitial changes at the left lung base. No acute findings. CT HEAD WITHOUT CONTRAST (CT) CLINICAL HISTORY: EVALUATE WEAKNESS COMPARISON STUDY: No previous studies for comparison. TECHNIQUE: Axial CT of the brain is performed from the vertex to the skull base. IV contrast was not administered for this examination. A dose lowering technique was utilized adhering to the principles of ALARA. CT DOSE: 1228.53 mGy.cm FINDINGS: No intra or extra-axial mass lesions are visualized. There is no CT evidence of acute cortical infarction. There is no evidence of midline shift. There is no acute hemorrhage. No calvarial fractures are visualized. There are patchy white matter hypodensities likely on a small vessel basis. There is no evidence of pathologic ventricular dilatation. There is no evidence of acute sinusitis IMPRESSION: No acute intracranial findings EKG SB58, 1 AVB Impression - H&P Impression Assessment and Plan 87 yo M with presyncope 1. Presyncope likely 2/2 acute GI illness in setting of upset stomach and diarrhea. Supportive care with IVF and antiemetics as needed. Stool studies. Imodium if severe. Monitor overnight for improvement. Had mild FOBT postitive in ER-would attribute to irritation from diarrhea and upset stomach. No blood per rectum has been noted by the patient. Outpatient workup/follow-up as needed. 2. Peripheral neuropathy-controlled with gabapentin 3. PAF-cont rate control with metoprolol, cont coumadin. Daily INR. 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 Y/N: Yes Risk Level: Moderate Given or contraindicated: Warfarin (Coumadin) Physical Exam (per Admitting): General Appearance: WD/WN, no apparent distress Head: normocephalic, atraumatic Eyes: normal inspection, PERRL, EOMI, sclerae normal ENT: normal ENT inspection, hearing grossly normal, TMs normal, pharynx normal Neck: supple, no adenopathy, no JVD, trachea midline Respiratory/Chest: lungs clear, normal breath sounds, no respiratory distress, no accessory muscle use Cardiovascular: regular rate, rhythm, no edema, no gallop, no JVD, no murmur , normal peripheral pulses Abdomen/GI: normal bowel sounds, non tender, soft, + fecal occult blood ( per ER physician) Back: normal inspection Extremities/Musculoskelatal: normal inspection 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 Supportive Care IV fluid Stool for C Diff-negative ,C/S pending Diarrheal is controlled with Imodium PAF-cont rate control with metoprolol, cont Coumadin. Has Extreme 1 deg Heart Block No arrhythmia noted overnight No symptoms noted Peripheral neuropathy-controlled with gabapentin Likely to complicate the situation DVT prophy-Coumadin Full Code per my discussion with he and his on admission Feeling a lot better Has had PT Wants to be discharged Discussed with the Family members Discharge today Total time spent on discharge = 35 minutes This includes examination of the patient, discharge planning, medication reconciliation, and communication with other providers. Discharge Instructions Date of Service Jun 02, 2017. Admission Reason for Admission: Near Syncope Discharge Discharge Diagnosis / Problem: Presyncope,Diarrhea-controlled Discharge Goals Goal(s): Prevent Disease Progression Activity Recommendations Activity Limitations: resume your previous activity . Instructions / Follow-Up Instructions / Follow-Up Will call with appointment Current Hospital Diet Patient's current hospital diet: AHA Diet (Heart Healthy) Discharge Diet Recommended Diet: AHA Diet (Heart Healthy) Pending Studies Studies pending at discharge: no Medical Emergencies . Who to Call and When: Medical Emergencies: If at any time you feel your situation is an emergency, please call 911 immediately. . Non-Emergent Contact Non-Emergency issues call your: Primary Care Provider . 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 "Provider Documentation" section prepared by Ezio Murray. . VTE Core Measure Inpt VTE Proph given/why not?: Warfarin (Coumadin) <Electronically signed by Ezio Murray M.D.> Additional Copies To Chemo Zapata M.D.
== END 2017-06-02 16:30 | disposition home or self-care (01) ==
LOC: C.EDB 10:35 → C.MED 12:16 → ENRESERV 13:25
PROVIDERS: ADMIT Hospitalist; ATTEND Internal Medicine
DX: R55 Syncope and collapse (principal); R19.7 Diarrhea, unspecified; I48.0 Paroxysmal atrial fibrillation; K21.9 Gastro-esophageal reflux disease without esophagitis; G47.33 Obstructive sleep apnea (adult) (pediatric); M48.06 Spinal stenosis, lumbar region; I73.9 Peripheral vascular disease, unspecified; G62.9 Polyneuropathy, unspecified; Z79.01 Long term (current) use of anticoagulants; Z79.899 Other long term (current) drug therapy

== ENCOUNTER 2020-03-30 19:04 | Observation (INO) ==
[2020-03-30] MEDS ORDERED: SODIUM CHLORIDE 0.9% 1000ML 1,000 ML IV ONE (19:46)
[2020-03-30] MEDS ORDERED: ACETAMINOPHEN 500 MG TAB PO STA (19:46)
[2020-03-30] MEDS ORDERED: CEFEPIME 2,000 MG/20 ML VIAL IV STA (19:46)
--- NOTE | 2020-03-30 19:52 | Emergency Department Note ---
Impression & Plan Weakness, Fever, Urinary frequency, Rigors ED Provider Note NAME: YASH XIAO AGE: 89 SEX: M : 1930 ARRIVES VIA: Walk-In INFORMANT: [Patient] ED PROVIDER(S): [Brian Beard MD] CHIEF COMPLAINT: Fever HISTORY OF PRESENT ILLNESS: The patient is an 89-year-old male who states that for the last few days, he has had some chills and weakness. He states that today, he actually had shivering. The patient took some Tylenol earlier today. The patient states that over the last week, he has had some difficulty with urination and it seemed like he had to pass gas in order to move his urine. Today, he has frequency with urination. Patient states that he has urinated twice since just being here in the ED. There has been some shortness of breath but this is chronic. There has been coughing but this is also chronic. No stuffy nose or sore throat. No vomiting or diarrhea or abdominal pain. He has had a decreased appetite. The patient has no known coronavirus exposures. REVIEW OF SYSTEMS: See HPI for pertinent positives and negatives. A total of ten systems were reviewed and were otherwise negative. PMHx/PSHx: See Below SOCIAL HISTORY: See Below. PHYSICAL EXAM: GENERAL: Patient is in no acute distress. HEENT: No acute trauma, normocephalic atraumatic, mucous membranes moist, no nasal congestion, no scleral icterus. NECK: No stridor, no adenopathy, no meningismus, trachea is midline. LUNGS: Clear to auscultation bilaterally, no wheeze, no rhonchi, breath sounds equal. HEART: Without murmurs gallops or rubs, regular rate and rhythm. ABDOMEN: Soft, nontender, bowel sounds positive, no hernias, no peritonitis. EXTREMITIES: No cyanosis, moderate bilateral pedal edema, full range of motion of all the joints without pain or difficulty, no signs for acute trauma. NEUROLOGIC: Oriented x 3, no acute motor or sensory deficits, no focal weakness. SKIN: No rash, no jaundice, no diaphoresis. DIFFERENTIAL DIAGNOSIS: Sepsis, UTI, pneumonia, metabolic, electrolyte abnormalities, coronavirus, pyelonephritis, cellulitis, cardiac sources, intracerebral event, toxicologic, neurologic, as well as other pathologies. EMERGENCY DEPARTMENT COURSE/PROCEDURES: ECG: Indication was possible sepsis. The ECG shows a sinus rhythm with a first-degree AV block. The rate is 75. There is no ST elevation, no PVCs. The QTc is 428. Continuous Cardiac Monitoring: An order was placed for continuous cardiac monitoring. The monitor shows a rate of 95 with sinus rhythm and a first-degree AV block. MEDICAL DECISION MAKING: There is no leukocytosis or concerning anemia. There was a normal platelet count. INR was somewhat elevated, this is consistent with his Coumadin use. No significant electrolyte abnormality or kidney failure. Procalcitonin and lactic acid levels were normal making severe sepsis less likely. There was no liver enzyme elevation. ECG showed a sinus rhythm, no acute ischemia. Cardiac enzyme testing x1 is not consistent with acute cardiac injury. Urinalysis shows some hematuria, no obvious infection. Lyme disease testing was negative. Coronavirus testing is pending. Chest film shows some chronic lung changes, no obvious pneumonia, no CHF. On exam, the patient appeared fatigued. He was febrile. He was not toxic. The patient received IV cefepime as empiric antibiotic coverage. He was given oral Tylenol. He received IV saline for hydration. At this point, the cause for the fever is unclear. I did consider the possibility of anaplasmosis, this test has been ordered and is pending. Certainly, bacteremia or a viral illness such as coronavirus is a possibility as well. Given the patient's age, given his high temperature, given his rigors and weakness, I do think a hospital stay is warranted. I did speak with the patient and case management. The on-call hospitalist was consulted. 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) Neuropathy (Chronic) On anticoagulant therapy (Chronic) FAYE on CPAP (Chronic) Osteoarthritis (Chronic) PAF (paroxysmal atrial fibrillation) (Chronic) Peripheral neuropathy (Chronic) Pulmonary embolism (Chronic) S/P TKA (2013) TAKING COUMADIN DAILY Sleep apnea (Chronic) CPAP Surgical History History of back surgery (Chronic) History of colonoscopy (Chronic) History of esophagogastroduodenoscopy (EGD) (Chronic) History of lumbar surgery (Chronic) x3 History of total knee replacement (Chronic) BILATERAL S/P knee replacement (Chronic) Family History (Updated 07/04/18 @ 15:47 by Yash Carlton MD) Brother Coronary heart disease Social History Smoking Status: Never smoker Second Hand Exposure: No; Hx Alcohol Use: No Hx Substance Use: No Preferred Language: Montserratian Communication Ability: Effective [employer]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 Beliefs That Will Affect Care: None Current Living Situation: Spouse Feels Safe at Home: Yes Allergies Allergies Allergy/AdvReac Type Severity Reaction Status Date / Time paroxetine AdvReac Intermediate JERKING Verified 03/30/20 21:52 Home Meds Home Medications Medication Instructions Recorded Confirmed acetaminophen [Tylenol] 650 mg PO BID PRN 07/04/18 03/30/20 ascorbic acid (vitamin C) [Vitamin 1,000 mg PO HS 07/04/18 03/30/20 C] calcium carbonate [Calcium 500] 500 mg PO HS 07/04/18 03/30/20 cholecalciferol (vitamin D3) 1,000 unit PO HS 07/04/18 03/30/20 [Vitamin D3] gabapentin 300 mg PO BID 07/04/18 03/30/20 metoprolol succinate 12.5 mg PO QAM 07/04/18 03/30/20 omeprazole 40 mg PO QAM 07/04/18 03/30/20 pramipexole 0.125 mg PO HS 07/04/18 03/30/20 simvastatin 20 mg PO PM 07/04/18 03/30/20 warfarin 2.5 mg PO QPM 07/04/18 03/30/20 famotidine 20 mg PO BID 03/30/20 03/30/20 potassium chloride 10 meq PO DAILY 03/30/20 03/30/20 Results & Data (ED) Vital Signs Vital Signs - 24 hr 07/21/20 19:24 03/30/20 19:47 03/30/20 21:00 Temperature 39.3 C H Temperature Source Oral Pulse Rate 82 78 Pulse Rate from SpO2 Sensor 76 Respiratory Rate 18 20 Blood Pressure 143/85 H 149/85 H Blood Pressure Mean 104 95 Pulse Oximetry 96 96 96 Oxygen Delivery Method Room Air Room Air Room Air Sepsis Recent Fever Within 48 Hours Yes Sepsis New/Unexplained Change in Mental Status No Sepsis Action Taken by Nursing No Action Required 03/30/20 21:30 03/30/20 22:00 Temperature 37.1 C Temperature Source Pulse Rate 93 H 95 H Pulse Rate from SpO2 Sensor 92 H 95 H Respiratory Rate 19 22 Blood Pressure 122/61 153/89 H Blood Pressure Mean 79 118 Pulse Oximetry 96 96 Oxygen Delivery Method Sepsis Recent Fever Within 48 Hours Sepsis New/Unexplained Change in Mental Status Sepsis Action Taken by [facility] Medications Current Medication List: was personally reviewed by me Laboratory Data Attestation: I reviewed the patient's lab results. Result diagrams: 03/30/20 20:47 03/30/20 20:47 Lab Results 03/30/20 03/30/20 03/30/20 Range/Units 20:47 20:47 20:47 WBC 5.84 (4.8-10.8) K/uL RBC 5.09 (4.7-6.1) M/uL Hgb 14.7 (14.0-18.0) g/dL Hct 41.8 L (42-52) % MCV 82.1 (80-100) fL MCH 28.9 (25-34) pg MCHC 35.2 (32-36) g/dL RDW Std Deviation 42.8 (36.4-46.3) fL RDW Coeff of Nicole 14.2 (11.5-14.5) % Plt Count 180 (130-400) K/uL MPV 10.3 (7.4-10.4) fL Immature Gran % (Auto) 0.2 % Neut % (Auto) 73.6 % Lymph % (Auto) 9.9 % [place] % (Auto) 15.8 % Eos % (Auto) 0.3 % Baso % (Auto) 0.2 % Neut # (Auto) 4.30 (1.4-6.5) K/uL Lymph # (Auto) 0.58 L (1.2-3.4) K/uL [place] # (Auto) 0.92 H (0.11-0.59) K/uL Eos # (Auto) 0.02 (0-0.5) K/uL Baso # (Auto) 0.01 (0-0.2) K/uL Immature Gran # (Auto) 0.01 (0.00-0.02) K/uL PT 18.5 H (9.0-12.0) Seconds INR 1.8 H (0.9-1.1) APTT 26.8 (21.0-31.0) Seconds PTT Ratio 1.0 Sodium (136-145) mmol/L Potassium (3.5-5.1) mmol/L Chloride (98-107) mmol/L Carbon Dioxide (21-32) mmol/L Anion Gap (3-11) BUN (7-18) mg/dl Creatinine (0.6-1.4) mg/dl Est Cr Clr Drug Dosing ml/min Est GFR ( Amer) Est GFR (Non-Af Amer) BUN/Creatinine Ratio (10-20) Glucose (70-99) mg/dl Lactate (0.4-2.0) mmol/L Calcium (8.5-10.1) mg/dl Magnesium (1.8-2.4) mg/dl Total Bilirubin (0.2-1) mg/dl AST (15-37) U/L ALT (12-78) U/L Alkaline Phosphatase (45-117) U/L Troponin I (0-0.045) ng/ml Total Protein (6.4-8.2) gm/dl Albumin (3.4-5.0) gm/dl Globulin (2.5-4.0) gm/dl Albumin/Globulin Ratio (0.9-2) Procalcitonin 0.07 (0-0.5) ng/ml Urine Color Urine Appearance (Clear) Urine pH (4.5-7.5) Ur Specific [place] (1.000-1.030) Urine Protein (Negative) Urine Glucose (UA) (Negative) Urine Ketones (Negative) Urine Blood (Negative) Urine Nitrite (Negative) Urine Bilirubin (Negative) Urine Urobilinogen (Negative) Ur Leukocyte Esterase (Negative) Urine WBC (Auto) (0-5) /hpf Urine RBC (Auto) (0-4) /hpf U Hyaline Cast (Auto) (0-5) /lpf U Epithel Cells (Auto) (0-5) /lpf Urine Bacteria (Auto) (Negative) Lyme Disease IgG Ab Negative (Negative) Lyme Disease IgM Ab Negative (Negative) COVID-19 PCR (Negative) 03/30/20 03/30/20 03/30/20 Range/Units 20:47 20:47 21:10 WBC (4.8-10.8) K/uL RBC (4.7-6.1) M/uL Hgb (14.0-18.0) g/dL Hct (42-52) % MCV (80-100) fL MCH (25-34) pg MCHC (32-36) g/dL RDW Std Deviation (36.4-46.3) fL RDW Coeff of Nicole (11.5-14.5) % Plt Count (130-400) K/uL MPV (7.4-10.4) fL Immature Gran % (Auto) % Neut % (Auto) % Lymph % (Auto) % [place] % (Auto) % Eos % (Auto) % Baso % (Auto) % Neut # (Auto) (1.4-6.5) K/uL Lymph # (Auto) (1.2-3.4) K/uL [place] # (Auto) (0.11-0.59) K/uL Eos # (Auto) (0-0.5) K/uL Baso # (Auto) (0-0.2) K/uL Immature Gran # (Auto) (0.00-0.02) K/uL PT (9.0-12.0) Seconds INR (0.9-1.1) APTT (21.0-31.0) Seconds PTT Ratio Sodium 137 (136-145) mmol/L Potassium 4.2 (3.5-5.1) mmol/L Chloride 105 (98-107) mmol/L Carbon Dioxide 26 (21-32) mmol/L Anion Gap 6.0 (3-11) BUN 15 (7-18) mg/dl Creatinine 1.23 (0.6-1.4) mg/dl Est Cr Clr Drug Dosing 55.7 ml/min Est GFR ( Amer) 60.4 Est GFR (Non-Af Amer) 52.1 BUN/Creatinine Ratio 12.2 (10-20) Glucose 111 H (70-99) mg/dl Lactate 1.3 (0.4-2.0) mmol/L Calcium 8.6 (8.5-10.1) mg/dl Magnesium 1.9 (1.8-2.4) mg/dl Total Bilirubin 0.7 (0.2-1) mg/dl AST 26 (15-37) U/L ALT 26 (12-78) U/L Alkaline Phosphatase 59 (45-117) U/L Troponin I < 0.015 (0-0.045) ng/ml Total Protein 6.8 (6.4-8.2) gm/dl Albumin 3.5 (3.4-5.0) gm/dl Globulin 3.3 (2.5-4.0) gm/dl Albumin/Globulin Ratio 1.1 (0.9-2) Procalcitonin (0-0.5) ng/ml Urine Color Urine Appearance (Clear) Urine pH (4.5-7.5) Ur Specific [place] (1.000-1.030) Urine Protein (Negative) Urine Glucose (UA) (Negative) Urine Ketones (Negative) Urine Blood (Negative) Urine Nitrite (Negative) Urine Bilirubin (Negative) Urine Urobilinogen (Negative) Ur Leukocyte Esterase (Negative) Urine WBC (Auto) (0-5) /hpf Urine RBC (Auto) (0-4) /hpf U Hyaline Cast (Auto) (0-5) /lpf U Epithel Cells (Auto) (0-5) /lpf Urine Bacteria (Auto) (Negative) Lyme Disease IgG Ab (Negative) Lyme Disease IgM Ab (Negative) COVID-19 PCR NEGATIVE (Negative) 03/30/20 Range/Units 21:15 WBC (4.8-10.8) K/uL RBC (4.7-6.1) M/uL Hgb (14.0-18.0) g/dL Hct (42-52) % MCV (80-100) fL MCH (25-34) pg MCHC (32-36) g/dL RDW Std Deviation (36.4-46.3) fL RDW Coeff of Nicole (11.5-14.5) % Plt Count (130-400) K/uL MPV (7.4-10.4) fL Immature Gran % (Auto) % Neut % (Auto) % Lymph % (Auto) % [place] % (Auto) % Eos % (Auto) % Baso % (Auto) % Neut # (Auto) (1.4-6.5) K/uL Lymph # (Auto) (1.2-3.4) K/uL [place] # (Auto) (0.11-0.59) K/uL Eos # (Auto) (0-0.5) K/uL Baso # (Auto) (0-0.2) K/uL Immature Gran # (Auto) (0.00-0.02) K/uL PT (9.0-12.0) Seconds INR (0.9-1.1) APTT (21.0-31.0) Seconds PTT Ratio Sodium (136-145) mmol/L Potassium (3.5-5.1) mmol/L Chloride (98-107) mmol/L Carbon Dioxide (21-32) mmol/L Anion Gap (3-11) BUN (7-18) mg/dl Creatinine (0.6-1.4) mg/dl Est Cr Clr Drug Dosing ml/min Est GFR ( Amer) Est GFR (Non-Af Amer) BUN/Creatinine Ratio (10-20) Glucose (70-99) mg/dl Lactate (0.4-2.0) mmol/L Calcium (8.5-10.1) mg/dl Magnesium (1.8-2.4) mg/dl Total Bilirubin (0.2-1) mg/dl AST (15-37) U/L ALT (12-78) U/L Alkaline Phosphatase (45-117) U/L Troponin I (0-0.045) ng/ml Total Protein (6.4-8.2) gm/dl Albumin (3.4-5.0) gm/dl Globulin (2.5-4.0) gm/dl Albumin/Globulin Ratio (0.9-2) Procalcitonin (0-0.5) ng/ml Urine Color Yellow Urine Appearance Clear (Clear) Urine pH 7.0 (4.5-7.5) Ur Specific [place] 1.011 (1.000-1.030) Urine Protein Negative (Negative) Urine Glucose (UA) Negative (Negative) Urine Ketones Negative (Negative) Urine Blood 2+ H (Negative) Urine Nitrite Negative (Negative) Urine Bilirubin Negative (Negative) Urine Urobilinogen Negative (Negative) Ur Leukocyte Esterase Negative (Negative) Urine WBC (Auto) 0 (0-5) /hpf Urine RBC (Auto) 10-30 H (0-4) /hpf U Hyaline Cast (Auto) 0 (0-5) /lpf U Epithel Cells (Auto) 5-10 H (0-5) /lpf Urine Bacteria (Auto) Negative (Negative) Lyme Disease IgG Ab (Negative) Lyme Disease IgM Ab (Negative) COVID-19 PCR (Negative) Administered Medications Discontinued Medications Acetaminophen (Tylenol) 1,000 mg PO NOW STA Stop: 03/30/20 19:47 Last Admin: 03/30/20 20:59 Dose: 1,000 mg Documented by: [id number] Cefepime HCl (Maxipime) 2,000 mg in 20 mls @ 5 mls/min IV NOW STA; Protocol Stop: 03/30/20 19:49 Last Admin: 03/30/20 21:00 Dose: 5 mls/min Documented by: [id number] Sodium Chloride (Nss 1000ml) 1,000 mls @ 999 mls/hr IV .[id number] ONE Stop: 03/30/20 20:46 Last Infusion: 03/30/20 22:13 Dose: 0 mls/hr Documented by: [id number] Admin: 03/30/20 21:00 Dose: 999 mls/hr Documented by: [id number] Imaging Data Radiologist's Impression: XR chest 1V portable HISTORY: SEPSIS COMPARISON: Chest 06/01/2017. FINDINGS: The heart remains mildly enlarged. Mild interstitial thickening at the lung bases persists. No new focal lung consolidations to suggest pneumonia. No pleural effusions. No pneumothorax. IMPRESSION: No significant change compared to the prior study. No acute process. Blood Pressure Blood Pressure Findings: Elevated blood pressure Blood Pressure Disposition: further management by hospitalist Discharge Plan Visit Data Chief Complaint: Illness Stated Complaint: WEAKNESS - CHILLS - URINARY SYMPTOMS ED Provider: Brian Beard Discharge Problem: Weakness, Fever, Urinary frequency, Rigors Patient Disposition: Admitted As Inpatient Condition: Fair Forms Stand Alone Forms: [facility] [facility] Prescriptions Prescriptions: No Action ascorbic acid (vitamin C) [Vitamin C] 1,000 mg Tablet 1,000 mg PO HS RF: 0 acetaminophen [Tylenol] 325 mg Tablet 650 mg PO BID PRN (Reason: Pain) RF: 0 omeprazole 40 mg Capsule,Delayed Release(Dr/Ec) 40 mg PO QAM RF: 0 calcium carbonate [Calcium 500] 500 mg calcium (1,250 mg) Tablet 500 mg PO HS RF: 0 simvastatin 20 mg Tablet 20 mg PO PM RF: 0 warfarin 5 mg Tablet 2.5 mg PO QPM RF: 0 pramipexole 0.125 mg Tablet 0.125 mg PO HS RF: 0 gabapentin 300 mg Capsule 300 mg PO BID RF: 0 cholecalciferol (vitamin D3) [Vitamin D3] 1,000 unit Capsule 1,000 unit PO HS RF: 0 metoprolol succinate 25 mg Tablet Extended Release 24 Hr 12.5 mg PO QAM RF: 0 famotidine 20 mg tablet 20 mg PO BID RF: 0 potassium chloride 10 mEq tablet,ER particles/crystals 10 meq PO DAILY RF: 0 Referrals Referrals: Anushka Salgado MD [Primary Care Provider] - Discharge Problem: Fever Qualifiers: Fever type: unspecified Qualified Code(s): R50.9 - Fever, unspecified
[2020-03-30 21:01] LABS: Basophils # (auto) 0.01 K/uL (0-0.2); Basophils % (auto) 0.2 %; Eosinophils # (auto) 0.02 K/uL (0-0.5); Eosinophils % (auto) 0.3 %; Hematocrit (blood only) 41.8 % (42-52); Hemoglobin 14.7 g/dL (14.0-18.0); Immature Granulocytes # (auto) 0.01 K/uL (0.00-0.02); Immature Granulocytes % (auto) 0.2 %; Lymphocytes # (auto) 0.58 K/uL (1.2-3.4); Lymphocytes % (auto) 9.9 %; Mean Corpuscular Hemoglobin 28.9 pg (25-34); Mean Corpuscular Hgb Conc 35.2 g/dL (32-36); Mean Corpuscular Volume 82.1 fL (80-100); Mean Platelet Volume 10.3 fL (7.4-10.4); Monocytes # (auto) 0.92 K/uL (0.11-0.59); Monocytes % (auto) 15.8 %; Neutrophils % (auto) 73.6 %; Platelet Count 180 K/uL (130-400); RDW Coefficient of Variation 14.2 % (11.5-14.5); RDW Standard Deviation 42.8 fL (36.4-46.3); Red Blood Count 5.09 M/uL (4.7-6.1); White Blood Count 5.84 K/uL (4.8-10.8)
--- NOTE | 2020-03-30 21:01 | XRay Report ---
XR chest 1V portable HISTORY: SEPSIS COMPARISON: Chest 06/01/2017. FINDINGS: The heart remains mildly enlarged. Mild interstitial thickening at the lung bases persists. No new focal lung consolidations to suggest pneumonia. No pleural effusions. No pneumothorax. IMPRESSION: No significant change compared to the prior study. No acute process. ACT 112: Negative or not required by law. Electronically signed by: Eddie Rowley M.D. 03/30/2020 9:00 PM
[2020-03-30 21:11] LABS: INR 1.8 (0.9-1.1); Partial Thromboplastin Time 26.8 Seconds (21.0-31.0); Prothrombin Time 18.5 Seconds (9.0-12.0)
[2020-03-30 21:20] LABS: Alanine Aminotransferase 26 U/L (12-78); Albumin Level 3.5 gm/dl (3.4-5.0); Aspartate Aminotransferase 26 U/L (15-37); BUN Creatinine Ratio 12.2 (10-20); Blood Urea Nitrogen 15 mg/dl (7-18); Calcium 8.6 mg/dl (8.5-10.1); Carbon Dioxide 26 mmol/L (21-32); Chloride 105 mmol/L (98-107); Creatinine Clr Calc Pharmacy 55.7 ml/min; Est GFR (African American) 60.4; Est GFR (Non-African American) 52.1; Glucose 111 mg/dl (70-99); Magnesium 1.9 mg/dl (1.8-2.4); Potassium 4.2 mmol/L (3.5-5.1); Sodium 137 mmol/L (136-145)
[2020-03-30 21:25] LABS: Albumin Globulin Ratio 1.1 (0.9-2); Alkaline Phosphatase 59 U/L (45-117); Bilirubin,Total 0.7 mg/dl (0.2-1); Globulin 3.3 gm/dl (2.5-4.0); Total Protein 6.8 gm/dl (6.4-8.2); Troponin I < 0.015 ng/ml (0-0.045)
[2020-03-30 21:37] LABS: Appearance Urine Clear (Clear); Bacteria Urine Automated Negative (Negative); Bilirubin Urine Negative (Negative); Blood Urine 2+ (Negative); Cast Urine Automated 0 /lpf (0-5); Color Urine Yellow; Glucose Urine UA Negative (Negative); Ketones Urine Negative (Negative); Leukocyte Esterase Urine Negative (Negative); Nitrite Urine Negative (Negative); Protein Urine Negative (Negative); Specific Gravity Urine 1.011 (1.000-1.030); Urobilinogen Urine Negative (Negative); WBC Urine Automated 0 /hpf (0-5)
[2020-03-30 21:52] LABS: Procalcitonin 0.07 ng/ml (0-0.5)
[2020-03-30 22:01] LABS: Lyme Ab IgG w/WB Rflx Negative (Negative); Lyme Ab IgM w/WB Rflx Negative (Negative)
--- NOTE | 2020-03-30 23:04 | History & Physical Report ---
Date of Service March 30, 2020 Assessment & Plan (1) Fever: Possible viral bronchitis No overt sepsis for now chronic diastolic heart failure as per records (EF 55 to 60%, TTE 2019), patient on the dry side PAF on Coumadin, patient NSR, INR slightly subtherapeutic hypertension, stable history postop PE as per records orthostatic hypotension as per records. OBS GMF Supportive management for presumptive viral illness for now Hold off on antibiotics until definite bacterial source found IVF PT OT eval DVT prophylaxis. Coumadin INR goal between 2 and 3 Full code Text document was generated using sharing.it voice recognition software. It may contain grammatical or spelling errors. Kindly contact undersigned for clarification of any documentation item in question. History of Present Illness [facility] Chief Complaint: Fever, difficulty with urination Primary Care Provider: Anushka Ruggiero MD History obtained from patient and records. Medical history significant for chronic diastolic heart failure as per records (EF 55 to 60%, TTE 2019), PAF on Coumadin, hypertension, hyperlipidemia, history postop PE as per records, orthostatic hypotension as per records. Last few days patient noted chills, weakness and shivering. Some difficulty with urination. No chest pain, no shortness of breath. Dry cough symptoms. No headache. No abdominal pain or diarrhea. Poor appetite. No known COVID-19 contacts. Patient consulted ER. Given Cefepime for possible sepsis. Medical History as above Surgical History : Knee surgery, back surgery Family History : Stomach cancer, diabetes, heart disease Personal/Social history : Non-smoker, no EtOH intake, 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 Allergies Allergy/AdvReac Type Severity Reaction Status Date / Time paroxetine AdvReac Intermediate JERKING Verified 03/30/20 21:52 Home Medications Home Medications Medication Instructions Recorded Confirmed Type acetaminophen [Tylenol] 650 mg PO BID PRN 07/04/18 03/30/20 History ascorbic acid (vitamin C) [Vitamin 1,000 mg PO HS 07/04/18 03/30/20 History C] calcium carbonate [Calcium 500] 500 mg PO HS 07/04/18 03/30/20 History cholecalciferol (vitamin D3) 1,000 unit PO HS 07/04/18 03/30/20 History [Vitamin D3] gabapentin 300 mg PO BID 07/04/18 03/30/20 History metoprolol succinate 12.5 mg PO QAM 07/04/18 03/30/20 History omeprazole 40 mg PO QAM 07/04/18 03/30/20 History pramipexole 0.125 mg PO HS 07/04/18 03/30/20 History simvastatin 20 mg PO PM 07/04/18 03/30/20 History warfarin 2.5 mg PO QPM 07/04/18 03/30/20 History famotidine 20 mg PO BID 03/30/20 03/30/20 History potassium chloride 10 meq PO DAILY 03/30/20 03/30/20 History Past Med/Surg History Medical History Anxiety (Chronic) BPH (benign prostatic hyperplasia) (Chronic) CKD (chronic kidney disease), stage III (Chronic) Dependent edema (Chronic) Diastolic dysfunction (Chronic) Diastolic heart failure (Chronic) GERD (gastroesophageal reflux disease) (Chronic) GERD (gastroesophageal reflux disease) (Chronic) Glaucoma, open angle (Chronic) Hiatal hernia (Chronic) History of pulmonary embolism (Chronic) Hyperlipidemia (Chronic) Hypertension (Chronic) Hypertension (Chronic) 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) use of anticoagulants (Chronic) 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) Neuropathy (Chronic) On anticoagulant therapy (Chronic) FAYE on CPAP (Chronic) Osteoarthritis (Chronic) PAF (paroxysmal atrial fibrillation) (Chronic) Peripheral neuropathy (Chronic) Pulmonary embolism (Chronic) S/P TKA (2012) TAKING COUMADIN DAILY Sleep apnea (Chronic) CPAP Surgical History History of back surgery (Chronic) History of colonoscopy (Chronic) History of esophagogastroduodenoscopy (EGD) (Chronic) History of lumbar surgery (Chronic) x3 History of total knee replacement (Chronic) BILATERAL S/P knee replacement (Chronic) Family History (Updated 07/04/18 @ 15:47 by Obi Carlton MD) Brother Coronary heart disease Social History Smoking Status: Never smoker Second Hand Exposure: No; Do You Dip or Chew Tobacco: No; Tobacco Cessation Education Requested by Patient: No Hx Alcohol Use: No Hx Substance Use: No Preferred Language: [place] Communication Ability: Effective Sausage Maker Required: No Beliefs That Will Affect Care: None marital status: Current Living Situation: Spouse Other Information That Helps Us Care for You: No Feels Safe at Home: Yes Safety Concerns: Feels Safe At This Time Review of Systems Review of Systems: As per HPI, all 10 systems reviewed, all other ROS negative Physical Exam Physical Exam: GENERAL: Slightly uncomfortable, wane, obese, no respiratory distress, dry raspy cough SKIN: Normal color, warm HEENT: Bespectacled, pink palpebral conjunctivae, no ptosis, dry buccal mucosa NECK : Supple, no tenderness CHEST : Decreased breath sounds, occasional expiratory wheezes, no tenderness HEART : RRR, no obvious murmurs ABDOMEN: Some distention, nontender EXTREMITIES : Minimal LE swelling, no LE tenderness, no other conspicuous deformities noted NEUROLOGIC : Coherent, no facial asymmetry, no other gross focality Results & Data Results & Data ([facility]) Vital Signs (Past 12 Hours) Vital Signs Temp Pulse Resp BP Pulse Ox 03/30/20 22:00 37.1 C 95 H 22 153/89 H 96 03/30/20 21:30 93 H 19 122/61 96 03/30/20 21:00 78 20 149/85 H 96 03/30/20 19:47 96 03/30/20 19:24 39.3 C H 82 18 143/85 H 96 Laboratory Results Laboratory Results WBC 5.84 K/uL (4.8-10.8) 03/30/20 20:47 RBC 5.09 M/uL (4.7-6.1) 03/30/20 20:47 Hgb 14.7 g/dL (14.0-18.0) 03/30/20 20:47 Hct 41.8 % (42-52) L 03/30/20 20:47 MCV 82.1 fL (80-100) 03/30/20 20:47 MCH 28.9 pg (25-34) 03/30/20 20:47 MCHC 35.2 g/dL (32-36) 03/30/20 20:47 RDW Std Deviation 42.8 fL (36.4-46.3) 03/30/20 20:47 RDW Coeff of Nicole 14.2 % (11.5-14.5) 03/30/20 20:47 Plt Count 180 K/uL (130-400) 03/30/20 20:47 MPV 10.3 fL (7.4-10.4) 03/30/20 20:47 Immature Gran % (Auto) 0.2 % 03/30/20 20:47 Neut % (Auto) 73.6 % 03/30/20 20:47 Lymph % (Auto) 9.9 % 03/30/20 20:47 [place] % (Auto) 15.8 % 03/30/20 20:47 Eos % (Auto) 0.3 % 03/30/20 20:47 Baso % (Auto) 0.2 % 03/30/20 20:47 Neut # (Auto) 4.30 K/uL (1.4-6.5) 03/30/20 20:47 Lymph # (Auto) 0.58 K/uL (1.2-3.4) L 03/30/20 20:47 [place] # (Auto) 0.92 K/uL (0.11-0.59) H 03/30/20 20:47 Eos # (Auto) 0.02 K/uL (0-0.5) 03/30/20 20:47 Baso # (Auto) 0.01 K/uL (0-0.2) 03/30/20 20:47 Immature Gran # (Auto) 0.01 K/uL (0.00-0.02) 03/30/20 20:47 PT 18.5 Seconds (9.0-12.0) H 03/30/20 20:47 INR 1.8 (0.9-1.1) H 03/30/20 20:47 APTT 26.8 Seconds (21.0-31.0) 03/30/20 20:47 PTT Ratio 1.0 03/30/20 20:47 Sodium 137 mmol/L (136-145) 03/30/20 20:47 Potassium 4.2 mmol/L (3.5-5.1) 03/30/20 20:47 Chloride 105 mmol/L (98-107) 03/30/20 20:47 Carbon Dioxide 26 mmol/L (21-32) 03/30/20 20:47 Anion Gap 6.0 (3-11) 03/30/20 20:47 BUN 15 mg/dl (7-18) 07/21/20 20:47 Creatinine 1.23 mg/dl (0.6-1.4) 03/30/20 20:47 Est Cr Clr Drug Dosing 55.7 ml/min 03/30/20 20:47 Est GFR ( Amer) 60.4 03/30/20 20:47 Est GFR (Non-Af Amer) 52.1 03/30/20 20:47 BUN/Creatinine Ratio 12.2 (10-20) 03/30/20 20:47 Glucose 111 mg/dl (70-99) H 03/30/20 20:47 Lactate 1.3 mmol/L (0.4-2.0) 03/30/20 20:47 Calcium 8.6 mg/dl (8.5-10.1) 03/30/20 20:47 Magnesium 1.9 mg/dl (1.8-2.4) 03/30/20 20:47 Total Bilirubin 0.7 mg/dl (0.2-1) 03/30/20 20:47 AST 26 U/L (15-37) 03/30/20 20:47 ALT 26 U/L (12-78) 03/30/20 20:47 Alkaline Phosphatase 59 U/L (45-117) 03/30/20 20:47 Troponin I < 0.015 ng/ml (0-0.045) 03/30/20 20:47 Total Protein 6.8 gm/dl (6.4-8.2) 03/30/20 20:47 Albumin 3.5 gm/dl (3.4-5.0) 03/30/20 20:47 Globulin 3.3 gm/dl (2.5-4.0) 03/30/20 20:47 Albumin/Globulin Ratio 1.1 (0.9-2) 03/30/20 20:47 Procalcitonin 0.07 ng/ml (0-0.5) 03/30/20 20:47 Urine Color Yellow 03/30/20 21:15 Urine Appearance Clear (Clear) 03/30/20 21:15 Urine pH 7.0 (4.5-7.5) 03/30/20 21:15 Ur Specific [place] 1.011 (1.000-1.030) 03/30/20 21:15 Urine Protein Negative (Negative) 03/30/20 21:15 Urine Glucose (UA) Negative (Negative) 03/30/20 21:15 Urine Ketones Negative (Negative) 03/30/20 21:15 Urine Blood 2+ (Negative) H 03/30/20 21:15 Urine Nitrite Negative (Negative) 03/30/20 21:15 Urine Bilirubin Negative (Negative) 03/30/20 21:15 Urine Urobilinogen Negative (Negative) 03/30/20 21:15 Ur Leukocyte Esterase Negative (Negative) 03/30/20 21:15 Urine WBC (Auto) 0 /hpf (0-5) 03/30/20 21:15 Urine RBC (Auto) 10-30 /hpf (0-4) H 03/30/20 21:15 U Hyaline Cast (Auto) 0 /lpf (0-5) 03/30/20 21:15 U Epithel Cells (Auto) 5-10 /lpf (0-5) H 03/30/20 21:15 Urine Bacteria (Auto) Negative (Negative) 03/30/20 21:15 Anaplasma Smear See Comment 03/30/20 20:47 Lyme Disease IgG Ab Negative (Negative) 03/30/20 20:47 Lyme Disease IgM Ab Negative (Negative) 03/30/20 20:47 COVID-19 PCR NEGATIVE (Negative) 03/30/20 21:10 Diagnostic Findings Chest x-ray : No significant change compared to the prior study. No acute process. EKG as per my interpretation :Rate 75, LAD, LAFB, no ischemia (1) Fever Fever type: unspecified Qualified Code(s): R50.9 - Fever, unspecified
[2020-03-30] MEDS ORDERED: guaiFENesin 600 MG TABCR PO STA (23:06)
[2020-03-30] MEDS ORDERED: WARFARIN SOD 5 MG TAB PO STA (23:15)
[2020-03-30] MEDS ORDERED: NSS + 20MEQ KCL 20 MEQ/1,000 ML BAG IV ONE (23:56)
[2020-03-30] MEDS ORDERED: PROMETHAZINE HCL 12.5 MG in SODIUM CHLORIDE 0.9% 50 ML IV PRN (23:56)
[2020-03-30] MEDS ORDERED: TRAMADOL HCL 50 MG TABLET PO PRN (23:56)
[2020-03-30] MEDS ORDERED: IPRATROPIUM BROMIDE NEB SOLN 0.02% 2.5 ML VIAL INH PRN (23:56)
[2020-03-30] MEDS ORDERED: LEVALBUTEROL 1.25MG/0.5ML NEB INH PRN (23:56)
[2020-03-30] MEDS ORDERED: PRAMIPEXOLE DIHYDROCHLO 0.25 MG TAB PO SCH (23:56)
[2020-03-30] MEDS ORDERED: XOPENEX/ATROVENT 1.25mg/0.5MG NEB COMBO NEB PRN (23:56)
[2020-03-30] MEDS ORDERED: ACETAMINOPHEN 325 MG TAB PO PRN (23:56)
[2020-03-31] MEDS ORDERED: SODIUM CHLORIDE 0.9% 1000ML 1,000 ML IV ONE (03:44)
[2020-03-31] MEDS ORDERED: SODIUM CHLORIDE 0.9% 500 ML IV ONE (03:46)
[2020-03-31 06:36] LABS: Basophils # (auto) 0.01 K/uL (0-0.2); Basophils % (auto) 0.2 %; Eosinophils # (auto) 0.01 K/uL (0-0.5); Eosinophils % (auto) 0.2 %; Hematocrit (blood only) 42.4 % (42-52); Hemoglobin 14.4 g/dL (14.0-18.0); Immature Granulocytes # (auto) 0.01 K/uL (0.00-0.02); Immature Granulocytes % (auto) 0.2 %; Lymphocytes # (auto) 0.43 K/uL (1.2-3.4); Lymphocytes % (auto) 6.8 %; Mean Corpuscular Hemoglobin 28.1 pg (25-34); Mean Corpuscular Volume 82.8 fL (80-100); Mean Platelet Volume 10.1 fL (7.4-10.4); Monocytes # (auto) 0.92 K/uL (0.11-0.59); Monocytes % (auto) 14.5 %; Neutrophils # (auto) 4.95 K/uL (1.4-6.5); Neutrophils % (auto) 78.1 %; Platelet Count 156 K/uL (130-400); RDW Coefficient of Variation 14.3 % (11.5-14.5); RDW Standard Deviation 43.5 fL (36.4-46.3); Red Blood Count 5.12 M/uL (4.7-6.1); White Blood Count 6.33 K/uL (4.8-10.8)
[2020-03-31 06:55] LABS: INR 1.8 (0.9-1.1); Prothrombin Time 18.1 Seconds (9.0-12.0)
[2020-03-31 07:10] LABS: BUN Creatinine Ratio 11.7 (10-20); Calcium 8.3 mg/dl (8.5-10.1); Creatinine Clr Calc Pharmacy 54.2 ml/min; Est GFR (African American) 58.1; Est GFR (Non-African American) 50.1
[2020-03-31] MEDS ORDERED: FAMOTIDINE 20 MG TAB PO SCH (09:00)
[2020-03-31] MEDS ORDERED: guaiFENesin 600 MG TABCR PO SCH (09:00)
[2020-03-31] MEDS ORDERED: GABAPENTIN 300 MG CAP PO SCH (09:00)
[2020-03-31] MEDS ORDERED: METOPROLOL SUCC 25MG EXT REL TAB PO SCH (09:00)
[2020-03-31] MEDS ORDERED: PANTOprazole 40 MG TAB PO SCH (09:00)
--- NOTE | 2020-03-31 10:09 | Hospitalist Progress Note ---
Date of Service March 31, 2020 Assessment & Plan (1) Fever: Possible Viral Bronchitis No overt sepsis for now Chronic diastolic heart failure as per records (EF 55 to 60%, TTE 2019), patient on the dry side PAF on Coumadin, patient NSR, INR slightly subtherapeutic Hypertension, stable History postop PE per records Orthostatic Hypotension per records. OBS GMF Supportive management for presumptive viral illness for now Hold off on antibiotics until definite bacterial source found IVF PT OT eval DVT prophylaxis. Coumadin INR goal between 2 and 3 Full code ROS-No Headache, No Visual Changes, No Nausea, No Vomiting, No Fever, No Chills, No Neck Pain or Stiffness, No Chest Pain, No Palpitations, No SOB, No [place], No Cough, No Sputum, No Wheezing, No Abdominal Pain, No Diarrhea, No Hematemesis, No Hemoptysis, No Unexpected Weight Loss, No Flank pain, No Melena, No Hematochezia, No Frequency, No Urgency, No Burning, No Hematuria, No Rashes, No Diaphoresis. Appetite is Normal, rough night Physical Exam Gen-AAO x 3, NAD, Afebrile Head-NCAT, EOMI, PERRLA, Anicteric Sclera, No Posterior Pharyngeal Erythema Neck-Supple, No JVD, No Thyromegaly, No Masses, No LAD, No Bruits Lungs-Clear to Auscultation Bilaterally, No Rales, No Rhonchi, No Wheezing, No Crepitus Chest-No S4, +S1, +S2, No S3, No Murmurs, No Rubs, No Gallops, No Ectopy Abdomen-Soft, Bowel Sounds Present, Non Tender, Non Distended, No Hepatomegaly, No Splenomegaly, No Palpable Masses, No Rebound, No Rigidity, No Guarding Musculoskeletal-Full Range of Motion Bilaterally, No CVAT Extremities-No Cyanosis, No Clubbing, No Edema Nuero-Cranial Nerves II-XII grossly intact, Motor WNL, DTRs WNL, Strength WNL, Non Focal Psych-Normal Mood Admission and Anticipated Discharge Date Admission Date: March 30, 2020 Results & Data Results & Data ([facility]) Vital Signs (Past 12 Hours) Vital Signs Temp Pulse Pulse Pulse Resp BP BP 03/31/20 07:07 37.1 C 84 18 153/82 H 03/31/20 03:49 03/31/20 03:44 78 154/81 H 03/31/20 03:35 36.5 C 03/31/20 02:41 37.3 C 03/30/20 23:58 36.5 C 95 H 16 128/81 03/30/20 23:43 90 18 131/84 BP Pulse Ox 03/31/20 07:07 98 03/31/20 03:49 152/84 H 03/31/20 03:44 100 03/31/20 03:35 70/42 L 03/31/20 02:41 03/30/20 23:58 95 03/30/20 23:43 96 (1) Fever Fever type: unspecified Qualified Code(s): R50.9 - Fever, unspecified
--- NOTE | 2020-03-31 12:34 | Electrocardiogram Report ---
Test Reason : Blood Pressure : / mmHG Vent. Rate : 075 BPM Atrial Rate : 075 BPM P-R Int : 224 ms QRS Dur : 100 ms QT Int : 384 ms P-R-T Axes : 024 -51 025 degrees QTc Int : 428 ms Sinus rhythm with 1st degree A-V block Left anterior fascicular block Abnormal ECG When compared with ECG of 04-JUL-2018 15:14, Premature supraventricular complexes are no longer Present Confirmed by Kendell Joyner ([id number]) on 03/31/2020 12:33:53 PM Referred By: REFERRED SELF Confirmed By:Kendell Joyner
--- NOTE | 2020-03-31 12:53 | Discharge Summary ---
Date of Service March 31, 2020 Admission HPI Per Admitting Provider History obtained from patient and records. Medical history significant for chronic diastolic heart failure as per records (EF 55 to 60%, TTE 2019), PAF on Coumadin, hypertension, hyperlipidemia, history postop PE as per records, orthostatic hypotension as per records. Last few days patient noted chills, weakness and shivering. Some difficulty with urination. No chest pain, no shortness of breath. Dry cough symptoms. No headache. No abdominal pain or diarrhea. Poor appetite. No known COVID-19 contacts. Patient consulted ER. Given Cefepime for possible sepsis. Medical History as above Surgical History : Family History : Personal/Social history : Admission Exam Per Admitting Provider Not documented yet Principal Diagnosis Fever: Possible Viral Bronchitis Chronic diastolic heart failure as per records (EF 55 to 60%, TTE 2019), patient on the dry side PAF on Coumadin Hypertension History postop PE per records Orthostatic Hypotension per records. Discharge Exam see below Discharge Data Allergies Allergy/AdvReac Type Severity Reaction Status Date / Time paroxetine AdvReac Intermediate JERKING Verified 03/30/20 21:52 Consultations 03/30/20 22:20 ED Decision to Admit Stat Hospital Course (1) Fever: Fever free since last night Possible Viral Bronchitis No overt sepsis Chronic diastolic heart failure as per records (EF 55 to 60%, TTE 2019), patient on the dry side PAF on Coumadin, patient NSR, INR slightly subtherapeutic Hypertension, stable History postop PE per records Orthostatic Hypotension per records. DC home, f/u c PCP ROS-No Headache, No Visual Changes, No Nausea, No Vomiting, No Fever, No Chills, No Neck Pain or Stiffness, No Chest Pain, No Palpitations, No SOB, No [place], No Cough, No Sputum, No Wheezing, No Abdominal Pain, No Diarrhea, No Hematemesis, No Hemoptysis, No Unexpected Weight Loss, No Flank pain, No Melena, No Hematochezia, No Frequency, No Urgency, No Burning, No Hematuria, No Rashes, No Diaphoresis. Appetite is Normal, rough night Physical Exam Gen-AAO x 3, NAD, Afebrile Head-NCAT, EOMI, PERRLA, Anicteric Sclera, No Posterior Pharyngeal Erythema Neck-Supple, No JVD, No Thyromegaly, No Masses, No LAD, No Bruits Lungs-Clear to Auscultation Bilaterally, No Rales, No Rhonchi, No Wheezing, No Crepitus Chest-No S4, +S1, +S2, No S3, No Murmurs, No Rubs, No Gallops, No Ectopy Abdomen-Soft, Bowel Sounds Present, Non Tender, Non Distended, No Hepatomegaly, No Splenomegaly, No Palpable Masses, No Rebound, No Rigidity, No Guarding Musculoskeletal-Full Range of Motion Bilaterally, No CVAT Extremities-No Cyanosis, No Clubbing, No Edema Nuero-Cranial Nerves II-XII grossly intact, Motor WNL, DTRs WNL, Strength WNL, Non Focal Psych-Normal Mood Total Time Total Time Spent Total Time Spent (In Minutes): 45 mins Total Time Includes: Examination of the Patient, Discharge Planning, Medication Reconciliation and Communication With Other Providers Discharge Plan Discharge Items Patient Disposition: Home - Self-Care Reason For Visit: FEVER,COVID NEG,DC ISOL Discharge Diagnosis: Fever: Possible Viral Bronchitis Chronic diastolic heart failure as per records (EF 55 to 60%, TTE 2019), patient on the dry side PAF on Coumadin Hypertension History postop PE per records Orthostatic Hypotension per records. Condition on Discharge: Fair Activity: Resume your previous activity Lifting: Gradually increase as tolerated Bathing: No limitations Sexual Activity: When tolerated Exercise/Sports: Rest today Driving/Machine Use: Resume 3 days after discharge Weightbearing: Full weightbearing Non-emergency contact: Primary Care Provider Follow-up/Referrals: Anushka Salgado MD [Primary Care Provider] - Diet: Regular Addtl Attending Provider Instructions: Rest and Moderate fluids Pending Studies at Discharge: No Stand-Alone Forms: My [employer], Smoking Cessation Medications and DC Order Prescriptions: New guaifenesin [Mucinex] 600 mg Tablet Extended Release 12hr 600 mg PO Q12 Qty: 14 RF: 0 Continued ascorbic acid (vitamin C) [Vitamin C] 1,000 mg Tablet 1,000 mg PO HS RF: 0 acetaminophen [Tylenol] 325 mg Tablet 650 mg PO BID PRN (Reason: Pain) RF: 0 omeprazole 40 mg Capsule,Delayed Release(Dr/Ec) 40 mg PO QAM RF: 0 calcium carbonate [Calcium 500] 500 mg calcium (1,250 mg) Tablet 500 mg PO HS RF: 0 simvastatin 20 mg Tablet 20 mg PO PM RF: 0 warfarin 5 mg Tablet 2.5 mg PO QPM RF: 0 pramipexole 0.125 mg Tablet 0.125 mg PO HS RF: 0 gabapentin 300 mg Capsule 300 mg PO BID RF: 0 cholecalciferol (vitamin D3) [Vitamin D3] 1,000 unit Capsule 1,000 unit PO HS RF: 0 metoprolol succinate 25 mg Tablet Extended Release 24 Hr 12.5 mg PO QAM RF: 0 famotidine 20 mg tablet 20 mg PO BID RF: 0 potassium chloride 10 mEq tablet,ER particles/crystals 10 meq PO DAILY RF: 0 Discharge Orders: Discharge Order (Routine); Ordered 03/31/20 Ordered By: Volodymyr Raymond Admission Data Admit Date/Time: 03/30/20 23:11 Attending Provider: Volodymyr Raymond Admit Provider: Melo Chun Primary Care Provider: Anushka Salgado Other Providers: Melo Chun
[2020-03-31] MEDS ORDERED: WARFARIN SOD 5 MG TAB PO SCH (16:00)
[2020-03-31] MEDS ORDERED: SIMVASTATIN 20 MG TAB PO SCH (21:00)
== END 2020-03-31 15:23 | disposition home or self-care (01) ==
LOC: ED 19:04 → 3N 19:04 → SUATTDRO 23:11 → 3N 23:43